=== PATIENT | female | born 1940 | race Caucasian/White ===

== ENCOUNTER 2020-01-02 07:25 | Day surgery (SDC) | payer MEDICARE ==
[2020-01-02] MEDS ORDERED: Lactated Ringers 1,000 ML IV SCH (07:30)
[2020-01-02] MEDS ORDERED: KEFZOL 1 GM/50 ML PREMIX** 1 GM/50 ML IVPB IV SCH (07:30)
[2020-01-02] MEDS ORDERED: Decadron 4 MG INJ ONE (09:01)
[2020-01-02] MEDS ORDERED: Xylocaine-Mpf 2% 5 Ml Vial ONE (09:01)
[2020-01-02] MEDS ORDERED: DIPRIVAN 200 MG/20 ML IV ONE (09:01)
[2020-01-02] MEDS ORDERED: Zofran 4 MG/2 ML VIAL ONE (09:01)
[2020-01-02] MEDS ORDERED: SUBLIMAZE 100 MCG/2 ML ONE (09:01)
[2020-01-02] MEDS ORDERED: KEFZOL 1 GM/50 ML PREMIX** 1 GM/50 ML IVPB IV ONE (10:02)
[2020-01-02] MEDS ORDERED: Lactated Ringers 1,000 ML IV ONE ×2 (10:02)
[2020-01-02 15:07] VITALS: PULSE 71; O2SAT 97
[2020-01-02 15:14] VITALS: BP 139/71
--- NOTE | 2020-01-03 09:31 | OP ---
SURGERY DATE/TIME: 01/02/2020 1311 PREOPERATIVE DIAGNOSIS: Postmenopausal bleeding and submucosal fibroid. POSTOPERATIVE DIAGNOSIS: Postmenopausal bleeding and submucosal fibroid. PROCEDURE: Hysteroscopy, D&C with resection of anterior submucosal fibroid with MyoSure. SURGEON: Gunnar Aguilar D.O. [employer] ACCESS DEVELOPER: charge preparation technician. ANESTHESIA: General. ESTIMATED BLOOD LOSS: Minimal. COMPLICATIONS: None. INDICATIONS: The risks, benefits, indications and alternatives of the procedure were reviewed with the patient prior to procedure. The patient understood the risk of infection, bleeding, bowel injury, bladder injury, ureteral injury, uterine perforation, pelvic infection, thromboembolic disorder associated with this procedure however desires to have this procedure as a possible means to alleviate her current medical condition. DESCRIPTION OF PROCEDURE AND FINDINGS: At this point the patient is taken to the operating room, given general sedation, placed in dorsal lithotomy position, prepped and draped in usual sterile fashion. A weighted speculum is then placed in the patient's vagina and the anterior lip of the cervix is grasped with a single tooth tenaculum. Endocervical dilators are advanced through the endocervical canal as a means to dilate the cervix and a 5 mm hysteroscope was then placed into the endocervical canal where visualization revealed her to have an anterior submucosal fibroid approximately 1 x 1 cm in dimension. There were no other gross abnormalities that were noted. From this point the MyoSure was then introduced into through the channel of the hysteroscope and the MyoSure was used to resect the anterior fibroid in its entirety which was approximately 1 x 1 cm in dimension. There was some old clot that was noted in the anterior surface region of the uterus where it was removed with MyoSure as well. From this point all instruments were removed from the patient's vaginal region. At this point a curette was then placed into the fundus of the uterus where curettage was performed in all quadrants of the uterus retrieving a mild to moderate amount of tissue. There was no bleeding that was noted at the completion of the procedure. From this point all instruments were removed from the patient's vaginal region. The patient was then taken out of dorsal lithotomy position and was then taken to the recovery room in stable condition. All instruments and laps were accounted for x2.
== END 2020-01-02 15:19 | disposition home or self-care (01) ==
LOC: SDC 07:25
PROVIDERS: ATTEND Obstetrics & Gynecology
DX: N95.0 Postmenopausal bleeding (principal); D25.0 Submucous leiomyoma of uterus; Z79.899 Other long term (current) drug therapy
CPT/HCPCS: 99100; J0690; J1100; J2405; J2704; J3010

== ENCOUNTER 2020-01-16 10:17 | Emergency (ER) | payer MEDICARE ==
[2020-01-16 10:56] LABS: Absolute Neutrophil Ct (ANC) 3.45 (1.4-6.9); BASOPHIL % 0.5 % (0.0-0.4); Basophil (Absolute #) 0.03 (0-0.4); Eosinophil % 3.1 % (0.00-5.0); Eosinophil (Absolute #) 0.19 (0-0.5); Hematocrit 34.6 % (35-47); Hemoglobin 11.3 gm/dl (12.0-16.0); Lymphocyte (Absolute #) 1.98 (1.0-4.6); Lymphocytes % 32.7 % (24.0-44.0); Mean Cell Volume 93.5 fl (78-100); Mean Corpuscular Hemoglobin 30.5 pg (26-32); Mean Corpuscular Hgb Concent. 32.7 g/dl (32-36); Mean Platelet Volume 8.4 fl (7.5-11.0); Monocyte (Absolute #) 0.41 (0.0-1.3); Monocytes % 6.8 % (0.0-12.0); Neutrophil % 56.9 % (36.0-66.0); Platelet Count 269 K/mm3 (150-450); Red Cell Distribution Width 12.2 % (11.5-14.0); White Blood Count 6.1 K/mm3 (4.0-10.5)
--- NOTE | 2020-01-16 10:58 | ERPHSYRPT ---
- History of Present Illness Time Seen by Provider: 01/16/20 10:30 Patient Subjective Stated Complaint: Pt had a D&C 2 weeks ago today and bled for about a day and a half, pt began bleeding again 2 days ago and reports that she is bleeding heavily now Triage Nursing Assessment: Pt brought self to the ER, pt's vitals wnl, denies pain, pulses normal, skin n/w/d, doesn't appear to be in any distress Physician History: Patient is a 79-year-old female presents to our ED with complaints of vaginal bleeding. Patient states she is postop day 14 from an D&C. Patient was d iagnosed with a bleeding uterine fibroid and reportedly had the fibroid removed 2 weeks ago. Patient has been experiencing intermittent bleeding since the surgery. However over the last 3 days the bleeding has gotten progressive. The bleeding was initially brownish but now it is bright red. No syncope. No dizziness. No chest pain or shortness of breath. No nausea vomiting or diaphoresis. Patient is currently pain-free and asymptomatic. Patient denies trauma. No fever. Patient voices no other complaints concerns at this time. Timing/Duration: other (Intermittent bleeding for 2 weeks continuous bleeding for 3 days.) Severity: moderate Modifying Factors: Improves With: nothing Associated Symptoms: denies symptoms Allergies/Adverse Reactions: Sulfa (Sulfonamide Antibiotics) Allergy (Intermediate, Verified 01/16/20 10:40) Rash meperidine [From Demerol] Adverse Reaction (Intermediate, Verified 01/16/20 10:40) Nausea Home Medications: Alprazolam 1 mg [Xanax 1 mg] 1 mg PO HS 08/29/18 [History] Cholecalciferol (Vitamin D3) [Vitamin D3] 1,000 unit PO DAILY 08/29/18 [History] Cyanocobalamin (Vitamin B-12) [Vitamin B12] 1,000 mcg PO DAILY 08/29/18 [History] Lisinopril 20 mg [Zestril 20 MG] 20 mg PO DAILY 08/29/18 [History] Multivitamin [Multivitamins] 1 each PO DAILY 08/29/18 [History] Tamoxifen Citrate 20 mg PO DAILY 08/29/18 [History] Carvedilol 3.125 mg [Coreg 3.125 MG] 3.125 mg PO BID 12/28/19 [History] Levothyroxine Sodium [Synthroid] 50 mcg PO DAILY 12/28/19 [History] [place]-3 Fatty Acids/Fish Oil [Fish Oil 1,000 mg Capsule] 1 each PO DAILY 12/28/19 [History] Aspirin EC 81 mg [Ecotrin 81 mg] 81 mg PO DAILY 01/02/20 [History] Travel Risk - International Travel Have you traveled outside of the country in past 3 weeks: No - Coronavirus Screening Are you exhibiting any of the following symptoms?: No Close contact with a COVID-19 positive Pt in past 14-21 Days: No - Review of Systems Constitutional: No Symptoms, No Fever, No Chills Eyes: No Symptoms Ears, Nose, & Throat: No Symptoms Respiratory: No Symptoms, No Cough, No Dyspnea Cardiac: No Symptoms, No Chest Pain, No Edema, No Syncope Abdominal/Gastrointestinal: No Symptoms, No Abdominal Pain, No Nausea, No Vomiting, No Diarrhea Genitourinary Symptoms: No Symptoms, No Dysuria Musculoskeletal: No Symptoms, No Back Pain, No Neck Pain Skin: No Symptoms, No Rash Neurological: No Symptoms, No Dizziness, No Focal Weakness, No Sensory Changes Psychological: No Symptoms Endocrine: No Symptoms Hematologic/Lymphatic: No Symptoms Immunological/Allergic: No Symptoms All Other Systems: Reviewed and Negative - Past Medical History Pertinent Past Medical History: Yes Neurological History: No Pertinent History ENT History: Cataracts Cardiac History: Hypertension Respiratory History: No Pertinent History, Other Endocrine Medical History: Hypothyroidism Musculoskeletal History: No Pertinent History GI Medical History: GERD History: Other Psycho-Social History: Bipolar Female Reproductive Disorders: Breast Cancer Other Medical History: Pt report she get short of breath easy. Pt reports that she has pulmonary hypertension. Hx of breast cancer right breast. 2018. chronic UTI. Pt has hx of bipolar but states " i took meds for years for my bipolar and they didn't seem to work so I stopped taking them. 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 - Social History Smoking Status: Never smoker Exposure to second hand smoke: No Drug Use: none Patient Lives Alone: Yes - Female History Hx Now: No - Nursing Vital Signs Nursing Vital Signs: Initial Vital Signs Temperature 98.1 F 01/16/20 10:24 Pulse Rate 72 01/16/20 10:24 Blood Pressure 143/65 01/16/20 10:24 O2 Sat by Pulse Oximetry 98 01/16/20 10:24 Pain Scale Pain Intensity 0 - Physical Exam General Appearance: no apparent distress, alert Eye Exam: PERRL/EOMI, eyes nml inspection Ears, Nose, Throat Exam: normal ENT inspection, TMs normal, pharynx normal, moist mucous membranes Neck Exam: normal inspection, non-tender, supple, full range of motion Respiratory Exam: normal breath sounds, lungs clear, No respiratory distress Cardiovascular Exam: regular rate/rhythm, normal heart sounds, normal peripheral pulses Gastrointestinal/Abdomen Exam: soft, normal bowel sounds, No tenderness, No mass Pelvic Exam: other (No active vaginal bleeding.) Back Exam: normal inspection, normal range of motion, No CVA tenderness, No vertebral tenderness Extremity Exam: normal inspection, normal range of motion, pelvis stable Neurologic Exam: alert, oriented x 3, cooperative, normal mood/affect, nml cerebellar function, nml station & gait, sensation nml, No motor deficits Skin Exam: normal color, warm, dry, No rash Lymphatic Exam: No adenopathy SpO2 Interpretation: normal SpO2: 98 O2 Delivery: Room Air - Course Nursing assessment & vital signs reviewed: Yes Ordered Tests: Active Orders 24 hr Category Date Time Status CBC W DIFF Stat Lab 01/16/20 10:45 Completed CMP Stat Lab 01/16/20 10:45 Completed PROTIME WITH INR Stat Lab 01/16/20 10:45 Completed PTT Stat Lab 01/16/20 10:45 Completed TROPONIN Q3H Lab 01/16/20 10:45 Completed TROPONIN Q3H Lab 01/16/20 13:45 Ordered TROPONIN Q3H Lab 01/16/20 16:45 Ordered TROPONIN Q3H Lab 01/16/20 19:45 Ordered TROPONIN Q3H Lab 01/16/20 22:45 Ordered UA W/RFX UR CULTURE Stat Lab 01/16/20 10:33 Ordered Lab/Rad Data: Laboratory Result Diagrams 01/16/20 10:45 01/16/20 10:45 Laboratory Results 01/16/20 01/16/20 01/16/20 Range/Units 10:45 10:45 10:45 WBC (4.0-10.5) K/mm3 RBC (4.1-5.4) M/mm3 Hgb (12.0-16.0) gm/dl Hct (35-47) % MCV (78-100) fl MCH (26-32) pg MCHC (32-36) g/dl RDW (11.5-14.0) % Plt Count (150-450) K/mm3 MPV (7.5-11.0) fl Gran % (36.0-66.0) % Eos # (Auto) (0-0.5) Absolute Lymphs (auto) (1.0-4.6) Absolute Monos (auto) (0.0-1.3) Lymphocytes % (24.0-44.0) % Monocytes % (0.0-12.0) % Eosinophils % (0.00-5.0) % Basophils % (0.0-0.4) % Absolute Granulocytes (1.4-6.9) Basophils # (0-0.4) PT 11.6 (9.95-12.35) SECONDS INR 1.03 (0.8-3.0) APTT 27.7 (25.3-37.0) SECONDS Sodium 131 L (137-145) mmol/L Potassium 4.9 (3.5-5.1) mmol/L Chloride 101 (98-107) mmol/L Carbon Dioxide 23 (22-30) mmol/L Anion Gap 11.4 (5-15) MEQ/L BUN 18 H (7-17) mg/dL Creatinine 0.94 (0.52-1.04) mg/dL Estimated GFR > 60.0 ML/MIN Glucose 100 (74-106) mg/dL Calcium 9.3 (8.4-10.2) mg/dL Total Bilirubin 0.40 (0.2-1.3) mg/dL AST 29 (14-36) U/L ALT 17 (0-35) U/L Alkaline Phosphatase 45 (38-126) U/L Troponin I < 0.012 (0.000-0.034) ng/mL Serum Total Protein 6.7 (6.3-8.2) g/dL Albumin 4.1 (3.5-5.0) g/dL 01/16/20 Range/Units 10:45 WBC 6.1 (4.0-10.5) K/mm3 RBC 3.70 L (4.1-5.4) M/mm3 Hgb 11.3 L (12.0-16.0) gm/dl Hct 34.6 L (35-47) % MCV 93.5 (78-100) fl MCH 30.5 (26-32) pg MCHC 32.7 (32-36) g/dl RDW 12.2 (11.5-14.0) % Plt Count 269 (150-450) K/mm3 MPV 8.4 (7.5-11.0) fl Gran % 56.9 (36.0-66.0) % Eos # (Auto) 0.19 (0-0.5) Absolute Lymphs (auto) 1.98 (1.0-4.6) Absolute Monos (auto) 0.41 (0.0-1.3) Lymphocytes % 32.7 (24.0-44.0) % Monocytes % 6.8 (0.0-12.0) % Eosinophils % 3.1 (0.00-5.0) % Basophils % 0.5 (0.0-0.4) % Absolute Granulocytes 3.45 (1.4-6.9) Basophils # 0.03 (0-0.4) PT (9.95-12.35) SECONDS INR (0.8-3.0) APTT (25.3-37.0) SECONDS Sodium (137-145) mmol/L Potassium (3.5-5.1) mmol/L Chloride (98-107) mmol/L Carbon Dioxide (22-30) mmol/L Anion Gap (5-15) MEQ/L BUN (7-17) mg/dL Creatinine (0.52-1.04) mg/dL Estimated GFR ML/MIN Glucose (74-106) mg/dL Calcium (8.4-10.2) mg/dL Total Bilirubin (0.2-1.3) mg/dL AST (14-36) U/L ALT (0-35) U/L Alkaline Phosphatase (38-126) U/L Troponin I (0.000-0.034) ng/mL Serum Total Protein (6.3-8.2) g/dL Albumin (3.5-5.0) g/dL - Progress Progress: improved Progress Note: 01/16/20 12:20 Patient reassessed. She feels well. No pain. No active vaginal bleeding. Work-up is essentially nonremarkable at this time. No significant change in her hemoglobin in light of her bleeding. Case discussed with our patients [employer] physician who advised discharging and he will see her in his office. Plan of care discussed with patient. We called the office and arrange a follow- up appointment for tomorrow at 10:[address] Jacinto Will see patient in: office (We arranged to have a follow-up appointment tomorrow 10:[address] Hudson's office.) Counseled pt/family regarding: lab results, diagnosis, need for follow-up, rad results - Departure Departure Disposition: Home Clinical Impression: Vaginal bleeding Condition: Stable Critical Care Time: No Referrals: JAMES SUAREZ [Primary Care Provider] - Additional Instructions: Discharge/Care Plan KIM CARTER was seen on 01/16/20 in the Emergency Room. The patient was counseled regarding Diagnosis,Lab results, Imaging studies, need for follow up and when to return to the Emergency Room. Prescriptions given: Discharge Note I have spoken with the patient and/or caregivers. I have explained the patient's condition, diagnosis and treatment plan based on the information available to me at this time. I have answered the patient's and/or caregiver's questions and addressed any concerns. The patient and/or caregivers have as good understanding of the patient's diagnosis, condition and treatment plan as can be expected at this point. The vital signs have been stable. The patient's condition is stable and appropriate for discharge from the emergency department. The patient will pursue further outpatient evaluation with the primary care physician or other designated or consulting physician as outlined in the discharge instructions. The patient and/or caregivers are agreeable to this plan of care and follow-up instructions have been explained in detail. The patient and/or caregivers have received these instruction. The patient/and or caregivers are aware that any significant change in condition or worsening of symptoms should prompt an immediate return to this or the closest emergency department or call 911.
[2020-01-16 11:03] LABS: INR 1.03 (0.8-3.0); PROTIME 11.6 SECONDS (9.95-12.35)
[2020-01-16 11:06] LABS: ALBUMIN 4.1 g/dL (3.5-5.0); ALKALINE PHOSPHATASE 45 U/L (38-126); ANION GAP 11.4 MEQ/L (5-15); BLOOD UREA NITROGEN 18 mg/dL (7-17); CHLORIDE 101 mmol/L (98-107); Calcium 9.3 mg/dL (8.4-10.2); Carbon Dioxide 23 mmol/L (22-30); Creatinine 1 0.94 mg/dL (0.52-1.04); EST GLOMERULAR FILTRATION RATE > 60.0 ML/MIN; Glucose 100 mg/dL (74-106); PTT 27.7 SECONDS (25.3-37.0); Potassium 4.9 mmol/L (3.5-5.1); SGOT/AST 29 U/L (14-36); SGPT/ALT 17 U/L (0-35); SODIUM 131 mmol/L (137-145); Total Protein 6.7 g/dL (6.3-8.2)
[2020-01-16 12:04] VITALS: BP 127/62; PULSE 66
[2020-01-16 12:23] VITALS: O2SAT 98
== END 2020-01-16 12:27 | disposition home or self-care (01) ==
LOC: ED 10:17
DX: N93.9 Abnormal uterine and vaginal bleeding, unspecified (principal); Z79.899 Other long term (current) drug therapy; I10 Essential (primary) hypertension; E78.5 Hyperlipidemia, unspecified
CPT/HCPCS: 36415; 80053; 84484; 85025; 85610; 85730; 99283

== ENCOUNTER 2020-01-26 09:24 | Emergency (ER) | payer MEDICARE ==
[2020-01-26] MEDS ORDERED: BACIGUENT PACKET TP ONE (09:32)
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
[2020-01-26] MEDS ORDERED: BACIGUENT PACKET ONE (09:42)
[2020-01-26 09:54] VITALS: BP 100/59; PULSE 79; O2SAT 99
== END 2020-01-26 09:53 | disposition home or self-care (01) ==
LOC: ED 09:24
DX: T22.212A Burn of second degree of left forearm, initial encounter (principal); X08.8XXA Exposure to other specified smoke, fire and flames, initial encounter; Z79.899 Other long term (current) drug therapy; I10 Essential (primary) hypertension; E03.9 Hypothyroidism, unspecified
CPT/HCPCS: 36415; 84443; 99283; A9270-GY

== ENCOUNTER 2021-09-09 10:30 | Day surgery (SDC) | payer MEDICARE ==
[~2021-09-09 10:30] MED LIST: XYLOCAINE 1% HCL 20 ML MDV ONE
[2021-09-09] MEDS ORDERED: Marcaine Mpf 0.5% Vial 30 Ml IJ ONE (10:31)
[2021-09-09] MEDS ORDERED: CEFAZOLIN 2 GM-D5W BAG** 2 GM/50 ML ML IV SCH (11:30)
[2021-09-09] MEDS ORDERED: Lactated Ringers 1,000 ML IV SCH (11:30)
[2021-09-09] MEDS ORDERED: Xylocaine-Mpf 2% 5 Ml Vial ONE (12:35)
[2021-09-09] MEDS ORDERED: DIPRIVAN 200 MG/20 ML IV ONE (12:35)
[2021-09-09] MEDS ORDERED: Versed 2 MG/2 ML Injection ONE (12:35)
[2021-09-09] MEDS ORDERED: SUBLIMAZE 100 MCG/2 ML ONE (12:35)
[2021-09-09] MEDS ORDERED: OFIRMEV 100 ML IV ONE (12:39)
[2021-09-09 14:31] VITALS: O2SAT 98
[2021-09-09 14:34] VITALS: BP 151/51; PULSE 60
--- NOTE | 2021-09-10 09:36 | OP ---
SURGERY DATE/TIME: 09/09/2021 1236 PREOPERATIVE DIAGNOSES: 1) Peripheral vascular disease. 2) Pain right foot. 3) Pain left foot. 4) Hammer toe. 5) Ulceration to proximal interphalangeal joint. POSTOPERATIVE DIAGNOSES: 1) Peripheral vascular disease. 2) Pain right foot. 3) Pain left foot. 4) Hammer toe. 5) Ulceration to proximal interphalangeal joint. PROCEDURES: 1) Amputation of third digit left foot. 2) Amputation second digit right foot. SURGEON: Dell Tolliver DPM. COMPUTER NETWORK SUPPORT SPECIALIST: None. ANESTHESIA: MAC plus local. HEMOSTASIS: Pressure dressing. ESTIMATED BLOOD LOSS: Less than 5 cc. INJECTABLES: 30 cc of 1:1 mixture of 1% lidocaine plain and 0.5% bupivacaine plain each injected to the second and third digits of the right and left foot respectively 15 cc each in a digit block-type fashion. INDICATION FOR SURGERY: Kathleen is a very pleasant 81-year-old female who presented to my office for significant amount of pain secondary to hammer toes. The patient did have bunion procedures and hammer toes corrected approximately 15 years ago. However, she indicates when they performed the procedure they did not use any hardware and the bone thickening occurred. Today, she presents with significant amount of pain primarily secondary to slight contractures of the digits. This pain causes her significant amount of disability. The patient is elderly and would like to continue moving. However, this pain has slowed her down and caused her significant amount of pain. Initially the patient was coming in for a reconstructive surgery. However given her pain is localized to her second and third digits to the right and left lower extremity respectively, options were discussed and the patient wanted the quickest return to activity that was possible. Given her age and medical status, the patient opted to proceed with an amputation which if healed within the next several weeks she can be back to her normal athletic activity and with little to lose in that situation. The patient understands all risks, complications and benefits of surgical intervention at this time including but not limited to delayed wound healing, nonwound healing, possibility of infection, hematoma, seroma, possibility of need for surgical intervention at a later date in order to address any issues. No guarantees were provided as to the outcome. However, performing this procedure is in hopes to get her back to ambulatory status immediately following the procedure and back in the gym in a relatively quick manner of time. It is with that we decided to proceed. DESCRIPTION OF PROCEDURE AND FINDINGS: The patient is brought into the OR and placed on the OR table in the supine position. At this time, bilateral lower extremities were prepped and draped in the typical sterile fashion and lowered onto the surgical field. There was MAC sedation provided prior to prepping and draping. A 15 cc block was injected into the left third digit and the right second digit. The procedure was carried out the same for the bilateral lower extremity. A dorsal racket-type incision was made down to the level of bone to the second digit and the third digit respectively. A disarticulation took place of the second metaphalangeal joint and the third metaphalangeal joint where disarticulation took place and the toe was handed off the field. Copious amounts of sterile were utilized with bulb and syringe in order to flush the surgical site. 4-0 Monocryl was utilized to coapt the surgical site and 3-0 Nylon was used utilized in a simple interrupted-type fashion in order to coapt the skin edges. At this time a dressing consisting of Betadine, Adaptic, 4x4, Kerlix and IVAN were applied to the bilateral lower extremity. The patient was then reversed from anesthesia and returned to the postoperative anesthesia care unit with vital signs stable and vascular status intact. The patient handled the anesthesia as well as the procedure without significant complication. Postoperative orders as indicated in the patient's discharge chart.
== END 2021-09-09 14:23 | disposition home or self-care (01) ==
LOC: SDC 10:30
PROVIDERS: ATTEND Podiatrist Foot & Ankle Surgery
DX: I73.9 Peripheral vascular disease, unspecified (principal); M20.42 Other hammer toe(s) (acquired), left foot; M20.41 Other hammer toe(s) (acquired), right foot; L97.509 Non-pressure chronic ulcer of other part of unspecified foot with unspecified severity; M79.672 Pain in left foot; M79.671 Pain in right foot
CPT/HCPCS: 28820; 99100; J0690; J2250; J2704; J3010

== ENCOUNTER 2021-12-26 12:02 | Emergency (ER) | payer MEDICARE ==
--- NOTE | 2021-12-26 12:24 | XRAY ---
Indication confusion. Stroke. Multiple contiguous images obtained through the head without contrast. Comparison: None Age-appropriate global atrophy, moderate periventricular degenerative micro-ischemia bilaterally, and remote lacunar infarct right external capsule. No acute intracranial hemorrhage, abnormal extra-axial fluid collection, or mass effect. Fourth ventricle is midline without hydrocephalus. Bony calvarium intact. Complete opacification left sphenoid sinus. Remaining visualized paranasal sinuses and mastoid air cells are clear. Impression: Nonacute senile brain with remote lacunar infarct right external capsule and left sphenoid sinus disease.
[2021-12-26 12:50] LABS: Basophil (Absolute #) 0.04 x10^3/uL (0-0.4); Eosinophil % 2.7 % (0.00-5.0); Hematocrit 36.9 % (35-47); Hemoglobin 12.1 g/dL (12.0-16.0); Lymphocyte (Absolute #) 2.62 x10^3/uL (1.0-4.6); Mean Cell Volume 89.8 fL (78-100); Mean Corpuscular Hemoglobin 29.4 pg (26-32); Mean Corpuscular Hgb Concent. 32.8 g/dL (32-36); Mean Platelet Volume 8.7 fL (7.5-11.0); Monocyte (Absolute #) 0.52 x10^3/uL (0.0-1.3); Monocytes % 6.9 % (0.0-12.0); Neutrophil % 54.8 % (36.0-66.0); Platelet Count 225 x10^3/uL (150-450); Red Blood Count 4.11 x10^6/uL (4.1-5.4); White Blood Count 7.5 x10^3/uL (4.0-10.5)
[2021-12-26 13:04] LABS: INR 0.99 (0.8-3.0); PROTIME 10.5 SECONDS (9.4-12.5); PTT 23.6 SECONDS (25.1-36.5)
--- NOTE | 2021-12-26 13:04 | XRAY ---
Indication: Stroke symptoms. History of whooping cough and pulmonary hypertension. Comparison: November 23, 2019 Portable chest remains hyperinflated and clear with a few incidental calcified granulomas. Bony thorax intact again with mild osteopenia, degenerative changes, and right axillary ross dissection. Impression: Continued nonacute chest with chronic features.
[2021-12-26 13:11] LABS: ALBUMIN 4.4 g/dL (3.5-5.0); ALKALINE PHOSPHATASE 60 U/L (38-126); BLOOD UREA NITROGEN 20 mg/dL (7-17); CHLORIDE 97 mmol/L (98-107); Calcium 9.8 mg/dL (8.4-10.2); Carbon Dioxide 27 mmol/L (22-30); Creatinine 1 0.89 mg/dL (0.52-1.04); EST GLOMERULAR FILTRATION RATE > 60.0 ML/MIN; Glucose 97 mg/dL (74-106); Potassium 5.1 mmol/L (3.5-5.1); SGOT/AST 42 U/L (14-36); SGPT/ALT 23 U/L (0-35); SODIUM 128 mmol/L (137-145); Total Protein 7.1 g/dL (6.3-8.2)
[2021-12-26 15:20] VITALS: O2SAT 97
[2021-12-26 15:22] VITALS: BP 132/72; PULSE 73
--- NOTE | 2021-12-26 15:23 | ERPHSYRPT ---
- History of Present Illness Time Seen by Provider: 12/26/21 12:09 Source: patient Exam Limitations: no limitations Patient Subjective Stated Complaint: pt to ER sent from [facility] for possible cva. pt stated she had sudden hearing loss 3 days ago and now has slight facial droop and Right eye neglect. Triage Nursing Assessment: pt a&oX4. pt with slight facial droop and Right eye neglect. pt with unsteady gait. pt skin pwd. Physician History: 81 years old female with history of hypertension, hypothyroidism presented in the ER from urgent care with possible strokelike symptoms. Patient reports she went to urgent care because she had a decreased hearing left ear 3 days ago and gradually improved. She also was noted to have some right facial drooping at urgent care which I could not appreciate during my interview. Patient denies any other focal numbness tingling or weakness. Patient does have issue with her hearing at her baseline and exactly could not pinpoint when current symptoms started and improved. It was also told that she has some issue with vision but patient denies having issue with vision. No difficulty speech. Denies any headache. Not a good historian and history is limited. Patient states "I do not think I have stroke and do not know why they sent me in here, I want to go home as quickly as possible". Allergies/Adverse Reactions: Sulfa (Sulfonamide Antibiotics) Allergy (Intermediate, Verified 12/26/21 12:25) Rash meperidine [From Demerol] Adverse Reaction (Intermediate, Verified 12/26/21 12:25) Nausea Home Medications: ALPRAZolam 1 MG [Xanax 1 mg] 1 mg PO TID 08/29/18 [History] Cholecalciferol (Vitamin D3) [Vitamin D3] 1,000 unit PO DAILY 08/29/18 [History] Cyanocobalamin (Vitamin B-12) [Vitamin B12] 1,000 mcg PO DAILY 08/29/18 [History] Lisinopril 20 mg [Zestril 20 MG] 10 mg PO DAILY 08/29/18 [History] Multivitamin [Multivitamins] 1 each PO DAILY 08/29/18 [History] Tamoxifen Citrate 20 mg PO DAILY 08/29/18 [History] [place]-3 Fatty Acids/Fish Oil [Fish Oil 1,000 mg Capsule] 1 each PO DAILY [History] Aspirin EC 81 mg [Ecotrin 81 mg] 81 mg PO DAILY 01/02/20 [History] Cider Vinegar [Apple Cider Vinegar] 1 cap PO DAILY 09/01/21 [History] L.acidoph,Paracasei, B.lactis [Probiotic] 1 cap PO DAILY 09/01/21 [History] Levothyroxine Sodium [Euthyrox] 50 mcg PO DAILY 09/01/21 [History] Hx Influenza Vaccination/Date Given: Yes Hx Pneumococcal Vaccination/Date Given: No Travel Risk - International Travel Have you traveled outside of the country in past 3 weeks: No - Coronavirus Screening Are you exhibiting any of the following symptoms?: No Close contact with a COVID-19 positive Pt in past 14-21 Days: No - Vaccine Status Have you recieved a Covid-19 vaccination: Yes Machine Tech: Moderna - Vaccination Dates Date of 2cond Vaccination (if applicable): unk - Review of Systems Constitutional: No Symptoms Eyes: No Symptoms Ears, Nose, & Throat: Hearing Changes Respiratory: No Symptoms Cardiac: No Symptoms Abdominal/Gastrointestinal: No Symptoms Genitourinary Symptoms: No Symptoms Musculoskeletal: Arthralgias Skin: No Symptoms Neurological: Sensory Changes Psychological: No Symptoms Hematologic/Lymphatic: No Symptoms Immunological/Allergic: No Symptoms - Past Medical History Pertinent Past Medical History: Yes Neurological History: TIA ENT History: Cataracts Cardiac History: Hypertension, Other Respiratory History: No Pertinent History, Other Endocrine Medical History: Hypothyroidism Musculoskeletal History: No Pertinent History GI Medical History: GERD History: Other Psycho-Social History: Anxiety, Bipolar, Depression Female Reproductive Disorders: Breast Cancer Other Medical History: Pt report she get short of breath easy. Pt reports that she has pulmonary hypertension. Hx of breast cancer right breast. 2018. chronic UTI. Pt has hx of bipolar but states " i took meds for years for my bipolar and they didn't seem to work so I stopped taking them. 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 - Social History Smoking Status: Never smoker Exposure to second hand smoke: No Drug Use: none Patient Lives Alone: Yes - Nursing Vital Signs Nursing Vital Signs: Initial Vital Signs Temperature 98.2 F 12/26/21 12:16 Pulse Rate 77 12/26/21 12:16 Respiratory Rate 26 H 12/26/21 12:16 Blood Pressure 157/83 12/26/21 12:16 O2 Sat by Pulse Oximetry 96 12/26/21 12:16 Pain Scale Pain Intensity 0 - [place] Coma Scale Best Eye Response ([place]): (4) open spontaneously Best Verbal Response ([place]): (5) oriented Best Motor Response ([place]): (6) obeys commands [place] Total: 15 - Physical Exam General Appearance: no apparent distress, alert Eye Exam: bilateral eye: normal inspection, PERRL, EOMI Ears, Nose, Throat Exam: normal ENT inspection, TMs normal, pharynx normal, moist mucous membranes Neck Exam: normal inspection, non-tender, supple, full range of motion Respiratory: normal breath sounds, lungs clear Cardiovascular: regular rate/rhythm, normal heart sounds Gastrointestinal: soft, normal bowel sounds, No tenderness Back Exam: normal inspection, normal range of motion Extremity Exam: normal inspection, pelvis stable Mental Status: alert, oriented x 3, cooperative, 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 Exam: normal speech, PERRL, No normal hearing (Mild decreased hearing left) Coordination/Gait: normal finger to nose, normal cerebellar function, negative Romberg's sign Motor/Sensory: no motor deficit, no sensory deficit, no pronator drift, negative Babinski's sign DTR: bicep (R): 2+, bicep (L): 2+, knee (R): 2+, knee (L): 2+ Skin Exam: normal color SpO2 Interpretation: normal SpO2: 97 O2 Delivery: Room Air - Course EKG Interpreted by Me: RATE (74), Sinus Rhythm, NORMAL AXIS, NORMAL INTERVALS, Q-wave Ordered Tests: Active Orders 24 hr Category Date Time Status EKG-ER Only STAT Care 12/26/21 12:35 Completed NPO (ED) STAT Care 12/26/21 12:35 Completed POCT Glucose Check STAT Care 12/26/21 12:35 Completed CHEST 1 VIEW (PORTABLE) Stat Exams 12/26/21 12:53 Completed HEAD WITHOUT CONTRAST [CT] Stat Exams 12/26/21 12:04 Completed CBC W DIFF Stat Lab 12/26/21 12:45 Completed CMP Stat Lab 12/26/21 12:45 Completed POCT GLUCOSE Stat Lab 12/26/21 12:40 Completed PROTIME WITH INR Stat Lab 12/26/21 12:45 Completed PTT Stat Lab 12/26/21 12:45 Completed Lab/Rad Data: Laboratory Result Diagrams 12/26/21 12:45 12/26/21 12:45 Laboratory Results 12/26/21 12/26/21 12/26/21 Range/Units 12:45 12:45 12:45 WBC 7.5 (4.0-10.5) x10^3/uL RBC 4.11 (4.1-5.4) x10^6/uL Hgb 12.1 (12.0-16.0) g/dL Hct 36.9 (35-47) % MCV 89.8 (78-100) fL MCH 29.4 (26-32) pg MCHC 32.8 (32-36) g/dL RDW 12.0 (11.5-14.0) % Plt Count 225 (150-450) x10^3/uL MPV 8.7 (7.5-11.0) fL Gran % 54.8 (36.0-66.0) % Immature Gran % (Auto) 0.1 (0.00-0.4) % Nucleat RBC Rel Count 0.0 (0.00-0.1) % Eos # (Auto) 0.20 (0-0.5) x10^3/uL Immature Gran # (Auto) 0.01 (0.00-0.03) x10^3u/L Absolute Lymphs (auto) 2.62 (1.0-4.6) x10^3/uL Absolute Monos (auto) 0.52 (0.0-1.3) x10^3/uL Absolute Nucleated RBC 0.00 (0.00-0.01) x10^3u/L Lymphocytes % 35.0 (24.0-44.0) % Monocytes % 6.9 (0.0-12.0) % Eosinophils % 2.7 (0.00-5.0) % Basophils % 0.5 (0.0-0.4) % Absolute Granulocytes 4.10 (1.4-6.9) x10^3/uL Basophils # 0.04 (0-0.4) x10^3/uL PT 10.5 (9.4-12.5) SECONDS INR 0.99 (0.8-3.0) APTT 23.6 L (25.1-36.5) SECONDS Sodium 128 L (137-145) mmol/L Potassium 5.1 (3.5-5.1) mmol/L Chloride 97 L (98-107) mmol/L Carbon Dioxide 27 (22-30) mmol/L Anion Gap 9.0 (5-15) MEQ/L BUN 20 H (7-17) mg/dL Creatinine 0.89 (0.52-1.04) mg/dL Estimated GFR > 60.0 ML/MIN Glucose 97 (74-106) mg/dL POC Glucometer (74 to 106) mg/dL Calcium 9.8 (8.4-10.2) mg/dL Total Bilirubin 0.40 (0.2-1.3) mg/dL AST 42 H (14-36) U/L ALT 23 (0-35) U/L Alkaline Phosphatase 60 (38-126) U/L Serum Total Protein 7.1 (6.3-8.2) g/dL Albumin 4.4 (3.5-5.0) g/dL 12/26/ Range/Units 12:40 WBC (4.0-10.5) x10^3/uL RBC (4.1-5.4) x10^6/uL Hgb (12.0-16.0) g/dL Hct (35-47) % MCV (78-100) fL MCH (26-32) pg MCHC (32-36) g/dL RDW (11.5-14.0) % Plt Count (150-450) x10^3/uL MPV (7.5-11.0) fL Gran % (36.0-66.0) % Immature Gran % (Auto) (0.00-0.4) % Nucleat RBC Rel Count (0.00-0.1) % Eos # (Auto) (0-0.5) x10^3/uL Immature Gran # (Auto) (0.00-0.03) x10^3u/L Absolute Lymphs (auto) (1.0-4.6) x10^3/uL Absolute Monos (auto) (0.0-1.3) x10^3/uL Absolute Nucleated RBC (0.00-0.01) x10^3u/L Lymphocytes % (24.0-44.0) % Monocytes % (0.0-12.0) % Eosinophils % (0.00-5.0) % Basophils % (0.0-0.4) % Absolute Granulocytes (1.4-6.9) x10^3/uL Basophils # (0-0.4) x10^3/uL PT (9.4-12.5) SECONDS INR (0.8-3.0) APTT (25.1-36.5) SECONDS Sodium (137-145) mmol/L Potassium (3.5-5.1) mmol/L Chloride (98-107) mmol/L Carbon Dioxide (22-30) mmol/L Anion Gap (5-15) MEQ/L BUN (7-17) mg/dL Creatinine (0.52-1.04) mg/dL Estimated GFR ML/MIN Glucose (74-106) mg/dL POC Glucometer 88 (74 to 106) mg/dL Calcium (8.4-10.2) mg/dL Total Bilirubin (0.2-1.3) mg/dL AST (14-36) U/L ALT (0-35) U/L Alkaline Phosphatase (38-126) U/L Serum Total Protein (6.3-8.2) g/dL Albumin (3.5-5.0) g/dL - Progress Progress: unchanged Progress Note: 12/26/21 15:40 Patient is made stroke activated, prompt CT head is obtained which is negative. Patient is not in the window for tPA or any kind of intervention as her symptoms started almost 3 days ago per her. Baseline lab work grossly unremarkable except for some low sodium 128. SOC neurology consult is obtained and recommended TIA work-up. Plan discussed with patient who does not want to stay in the hospital at all. She wants to leave AGAINST MEDICAL ADVICE. She is not confused or altered at all. Patient states "I do not think I have stroke and need any other work-up. I have to feed my meal at home." She left the ER in a stable condition. Discussed with : Other Counseled pt/family regarding: lab results, diagnosis, need for follow-up, rad results - Departure Departure Disposition: AMA Clinical Impression: Decreased hearing of left ear Condition: Stable Critical Care Time: No Referrals: JAMES SUAREZ NP [Primary Care Provider] - Follow up/PCP as directed
== END 2021-12-26 15:22 | disposition left against medical advice (07) ==
LOC: ED 12:02
DX: H91.92 Unspecified hearing loss, left ear (principal); I10 Essential (primary) hypertension; Z79.899 Other long term (current) drug therapy
CPT/HCPCS: 36415; 70450; 71045; 80053; 82947; 85025; 85610; 85730; 93005; 99284

== ENCOUNTER 2023-06-21 10:32 | Inpatient (IN) | payer MEDICARE ==
--- NOTE | 2023-06-21 09:08 | HP ---
DATE OF SURGERY: 06/21/2023 HISTORY OF PRESENT ILLNESS: The patient is an 82-year-old female with history of irritable bowel syndrome, history of colitis. Off and on trouble with three to six stools a day. She had a flare up in the past. Last colonoscopy a few years ago with no bloody stools. Blood spot when she wipes. PAST MEDICAL HISTORY: Gastroesophageal reflux disease. Irritable bowel syndrome. 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 Problem with sleep apnea. Arthritis. Transient ischemic attack in the past. Hypothyroidism. Anxiety. Breast cancer diagnosed in the past. PAST SURGICAL HISTORY: Cataracts. Tonsillectomy and adenoidectomy. Throat surgery in the past. EGD and colonoscopy in the past. Left ear surgery. Second to left foot amputation. MEDICATIONS: Donepezil, multivitamin, fish oil, vitamin D3, cyanocobalamin, aspirin, Lisinopril, prednisone. ALLERGIES: SULFA. DEMEROL. FAMILY HISTORY: Negative in regards to this problem. SOCIAL HISTORY: No smoking or alcohol abuse. REVIEW OF SYSTEMS: Twelve systems reviewed. No chest pain or palpitations. Other systems negative or noncontributory as above and per preadmission questionnaire. PHYSICAL EXAMINATION: Height 5 feet 4 inches. BMI 21.46. GENERAL: No acute distress. HEENT: Sclerae nonicteric. EOMI. Oral mucous membranes moist. NECK: No JVD. CHEST: Equal excursion, nonlabored breathing. CVS: Regular rate and rhythm. ABDOMEN: Soft. No peritoneal signs. EXTREMITIES: No cyanosis or edema. NEURO: Alert, oriented, moving extremities symmetrically. RECTAL: Deferred timed to endoscopy exam. PSYCH: Appropriate mood and affect. SKIN: Dry. IMPRESSION: Change in bowel habits, intermittent hemorrhoid prolapse despite conservative management. I feel the patient will benefit from colonoscopy possible internal hemorrhoid banding. Risks explained in detail including bleeding and infection. Risk of bowel injury or perforation. Risk of missed or nondiagnosis or incomplete exam. General risk of anesthesia, risk of bowel prep, risk of sedation, risk of progression of hemorrhoid disease possibly requiring other procedures or referrals. Risk of aches and pains. Risk of sphincter spasm or irritability but not limited to. She understands and agrees to the planned procedure. Will proceed with colonoscopy with possible internal hemorrhoid banding pending operative findings.
[2023-06-21] MEDS ORDERED: Lactated Ringers 1,000 ML IV ONE ×3 (10:39→16:46)
[2023-06-21] MEDS: Lactated Ringers 1,000 ML IV SCH (11:20)
[2023-06-21 11:33] LABS: ANION GAP 11.7 MEQ/L (5-15); Calcium 9.8 mg/dL (8.4-10.2); Creatinine 1 0.83 mg/dL (0.52-1.04); EST GLOMERULAR FILTRATION RATE 71.2 ML/MIN; Potassium 4.1 mmol/L (3.5-5.1)
[2023-06-21] MEDS ORDERED: DIPRIVAN 200 MG/20 ML IV ONE (12:14)
[2023-06-21] MEDS ORDERED: Quelicin Fliptop 200 MG/10 ML ONE (12:32)
[2023-06-21] MEDS ORDERED: Amidate 20 MG/10 ML IV ONE (12:32)
[2023-06-21] MEDS ORDERED: SUBLIMAZE 100 MCG/2 ML ONE ×3 (12:32→16:39)
[2023-06-21] MEDS ORDERED: ROCURONIUM BROMIDE IV ONE ×2 (12:35→14:25)
[2023-06-21] MEDS ORDERED: Sensorcaine 0.25% 10 ML ONE (13:09)
[2023-06-21] MEDS ORDERED: MEFOXIN 2 GM PREMIX** 2 GM/50 ML ML IV ONE (13:29)
[2023-06-21] MEDS ORDERED: OFIRMEV 100 ML IV ONE (13:30)
[2023-06-21] MEDS ORDERED: Marcaine 0.5%/Epinephrine 10 ML ONE ×2 (13:52→13:56)
[2023-06-21] MEDS ORDERED: BRIDION 200MG/2ML IV ONE (15:17)
[2023-06-21] MEDS ORDERED: Zofran 4 MG/2 ML VIAL ONE ×2 (15:19→15:49)
[2023-06-21] MEDS ORDERED: Decadron 4 MG INJ ONE (15:19)
[2023-06-21] MEDS ORDERED: Compazine 10 MG/2 ML ONE (15:50)
[2023-06-21 17:03] LABS: Appearance Clear (Clear); Bacteria None Seen /HPF (None Seen); Bilirubin Negative (Negative); Blood Negative (Negative); Epithelial Cells None Seen /HPF (None Seen); Glucose, Urine Negative (Negative); Hyaline Casts NONE SEEN /LPF (0-2); Ketones Negative (Negative); Leukocyte Esterase Negative (Negative); Nitrite Negative (Negative); Ph 6.5 (4.6-8.0); Protein,Urine Dip Negative (Negative); RBC 0-2 /HPF (0-5); Urobilinogen 0.2 mg/dL (0.2); WBC 0-2 /HPF (0-5)
[2023-06-21] MEDS ORDERED: MORPHINE SULFATE 4 MG INJ IV PRN (17:57)
[2023-06-21] MEDS: D5W/0.45NS W/ 20mEq KCl 1000 ML 1,000 ML IV SCH (18:46)
[2023-06-21] MEDS: NORCO 5/325 MG PO PRN (18:49)
[2023-06-21 19:04] LABS: Absolute Neutrophil Ct (ANC) 10.29 x10^3/uL (1.4-6.9); BASOPHIL % 0.2 % (0.0-0.4); Basophil (Absolute #) 0.02 x10^3/uL (0-0.4); Eosinophil (Absolute #) 0 x10^3/uL (0-0.5); Hematocrit 39.3 % (35-47); Hemoglobin 13.2 g/dL (12.0-16.0); IMMATURE GRAN # 0.04 x10^3u/L (0.00-0.03); IMMATURE GRAN % 0.3 % (0.00-0.4); Lymphocyte (Absolute #) 0.52 x10^3/uL (1.0-4.6); Lymphocytes % 4.5 % (24.0-44.0); Mean Cell Volume 87.5 fL (78-100); Mean Corpuscular Hemoglobin 29.4 pg (26-32); Mean Corpuscular Hgb Concent. 33.6 g/dL (32-36); Mean Platelet Volume 8.8 fL (7.5-11.0); Monocyte (Absolute #) 0.62 x10^3/uL (0.0-1.3); Monocytes % 5.4 % (0.0-12.0); Neutrophil % 89.6 % (36.0-66.0); Platelet Count 209 x10^3/uL (150-450); Red Blood Count 4.49 x10^6/uL (4.1-5.4); White Blood Count 11.5 x10^3/uL (4.0-10.5)
[2023-06-21 19:31] LABS: PREALBUMIN 23.08 mg/dL (17.6-36.0); TROPONIN < 0.012 ng/mL (0.000-0.033)
[2023-06-21 20:31] LABS: Slide Review 1 YES
[2023-06-21] MEDS: Zofran 4 MG/2 ML VIAL IV PRN (21:09)
[2023-06-21] MEDS: MORPHINE SULFATE 2 MG INJ IV PRN (21:09)
[2023-06-21] MEDS: XANAX 1 MG PO ONE (22:03)
[2023-06-21] MEDS ORDERED: PIPERACILLIN/TAZOBACTAM IV ONE (23:57)
[2023-06-21] MEDS ORDERED: Sodium Chloride 100ML MINI-BAG PLUS 100 ML IV ONE (23:58)
[2023-06-21] MEDS: PIPERACILLIN/TAZOBACTAM 3.375 GM in Sodium Chloride 100ML MINI-BAG PLUS 100 ML IV SCH (23:59)
[2023-06-22 05:16] LABS: Absolute Neutrophil Ct (ANC) 11.26 x10^3/uL (1.4-6.9); BASOPHIL % 0.1 % (0.0-0.4); Basophil (Absolute #) 0.01 x10^3/uL (0-0.4); Eosinophil (Absolute #) 0 x10^3/uL (0-0.5); Hematocrit 33.8 % (35-47); Hemoglobin 11.6 g/dL (12.0-16.0); IMMATURE GRAN # 0.04 x10^3u/L (0.00-0.03); IMMATURE GRAN % 0.3 % (0.00-0.4); Lymphocyte (Absolute #) 0.92 x10^3/uL (1.0-4.6); Lymphocytes % 7.1 % (24.0-44.0); Mean Cell Volume 87.8 fL (78-100); Mean Corpuscular Hemoglobin 30.1 pg (26-32); Mean Corpuscular Hgb Concent. 34.3 g/dL (32-36); Mean Platelet Volume 9.2 fL (7.5-11.0); Monocyte (Absolute #) 0.68 x10^3/uL (0.0-1.3); Monocytes % 5.3 % (0.0-12.0); Neutrophil % 87.2 % (36.0-66.0); Platelet Count 204 x10^3/uL (150-450); Red Blood Count 3.85 x10^6/uL (4.1-5.4); Red Cell Distribution Width 12.6 % (11.5-14.0); White Blood Count 12.9 x10^3/uL (4.0-10.5)
[2023-06-22 05:44] LABS: ANION GAP 11.4 MEQ/L (5-15); Calcium 8.8 mg/dL (8.4-10.2); Creatinine 1 0.84 mg/dL (0.52-1.04); EST GLOMERULAR FILTRATION RATE 70.2 ML/MIN; Potassium 4.6 mmol/L (3.5-5.1)
[2023-06-22] MEDS ORDERED: Sodium Chloride 100ML MINI-BAG PLUS 100 ML IV ONE ×2 (05:54→05:56)
[2023-06-22] MEDS ORDERED: PIPERACILLIN/TAZOBACTAM IV ONE (05:54)
[2023-06-22] MEDS: XANAX 1 MG PO SCH (09:24)
[2023-06-22] MEDS: SYNTHROID 50 MCG PO SCH (09:26)
[2023-06-22] MEDS: THERAGRAN MULTIVITAMIN PO SCH (09:26)
[2023-06-22] MEDS: FISH OIL 1,000 MG CAPSULE PO SCH (09:26)
[2023-06-22] MEDS: VITAMIN D PO SCH (09:26)
[2023-06-22] MEDS: Zestril 10 MG PO SCH (09:26)
[2023-06-22] MEDS: Acidophilus TABLET PO SCH (09:26)
[2023-06-22] MEDS: Vitamin B-12 500 MCG PO SCH (09:27)
--- NOTE | 2023-06-22 09:38 | OP ---
SURGERY DATE/TIME: 06/21/2023 1215 PREOPERATIVE DIAGNOSIS: History of change in bowel habits and prolapsing internal hemorrhoids. POSTOPERATIVE DIAGNOSIS: History of change in bowel habits and prolapsing internal hemorrhoids. PROCEDURES: 1) Colonoscopy to descending colon. 2) Cold biopsy to evaluate for microscopic colitis. 3) This procedure aborted secondary to perforated diverticulum. 4) Exploratory mini-laparotomy with resection of sigmoid colon with perforated diverticulum segment with primary end-to-end anastomosis descending colon to rectum with EEA25 stapler. 5) Colonoscopy to transverse colon (demonstrating viable airtight tension free anastomosis). SURGEON: Dr. Joel Smyth. ANESTHESIA: General. QUANTITATIVE BLOOD LOSS: Less than 75 cc. INDICATIONS: As noted above. Risks and benefits explained in detail and not limited to and consent obtained. DESCRIPTION OF PROCEDURE AND FINDINGS: The patient was initially started with endoscopy, consent obtained. Time out had been done. MAC anesthesia introduced. On digital rectal exam revealed some small internal and external hemorrhoids. Video colonoscope inserted and passed up through the tortuous sigmoid colon. The patient had some medium to large diverticula whether this large diverticula perforated again with minimal pushing of the scope was being done at the time. There is an obvious perforation. It was felt that this patient should definitely warrant laparotomy with resection of this segment as this is a perforated diverticulum. On the way out, a couple cold biopsies were taken to evaluate for microscopic colitis. At this point the room was being readied for laparotomy and plan to do a mini-laparotomy with resection of the sigmoid at the perforated take and re-anastomosis possible laparoscopy. The patient's propofol had worn off. This was discussed with the patient and she was agreeable. General risk of bleeding, infection, bowel injury, risk of leak or bleeding or fistula formation. Small risk of bladder, ureter, vascular issues or injury but not limited to. Risk of obstruction. Risk of nonhealing of the wound but not limited to. She was agreeable. I also spoke with the son over the phone as he was not in the building. I updated him that she had perforation most likely came from diverticula. It was much safer to go ahead and resect this now than risk nonhealing prolonged sort or sepsis. They were agreeable to surgery. Consent was obtained. The patient is taken to the operating room. She was then placed under general anesthetic, prepped and draped in usual sterile fashion in lithotomy position. A small lower midline incision was made. Sides of the wound protector we did not have a wound protector here at this facility at this point at this site. Dissection carried down to very redundant sigmoid colon had diverticula. There were some adhesions down behind the liver and these were released. At this point, appeared to be coming from diverticula but to make 100% sure the bowel was stretched out. Staff member just gently inserted the colonoscope into the rectum and insufflated this site where what appeared to be perforated diverticulum was marked with a suture. At this point, it was felt that it should be taken down to the top edge of the rectum. There seemed to be a couple of small diverticula down over level of pelvic brim. It was felt should go past this. The patients descending colon more proximally transected with NETO stapler. As this is not a cancer operation stayed close to the mesentery carefully avoiding the visible left ureter with some vessels taken down with a combination of clamps and Vicryl ties to this mini-laparotomy incision. The colon is resected right over the top part of the rectum and part just passed what appeared to be some small diverticula. At this point, we did not have a blue load contour stapler so the little bit of ooze at the staple line controlled with interrupted 3-0 PDS suture ligature. Good hemostasis noted. At this point, carefully inspected. The right colon was unremarkable. Palpated and visualized the colon, redundant transverse colon but there was no minerva thickening or palpable masses. At this point, the wound was tacked as a wound protector was still not available. We went to another hospital for one. Tacked the wound with some dry pads in part of the distal and proximal end of the colon was open. The sides were checked and it was felt that she had a narrow caliber colon. It was felt a size 25 most appropriate site to use. Therefore the anvil was then placed in this proximal limb and the stump was then restapled and the anvil brought through another staple line and secured with PDS suture. At this point, down below easily visualized the staple line where the colon had been transected. The 25 stapler was then carefully passed up through the bowel at this point and carefully opened when the pin came through this broke through the staple line. The stapler was then connected insuring the proximal end was avoiding any twisting. It easily snapped together. Once it was snapped together, the stapler was then carefully tightened to the lower third of the green zone. We waited a couple of minutes and the stapler was fired. The stapler was then backed off two to two and a half turns and the stapler easily removed. At this point, the proximal colon was pinched off to the part of the transverse colon with a colonoscope carefully passed up to the anastomosis. There was fluid instilled in the pelvis. It was airtight, viable anastomosis. It appeared to be quite viable. There are no signs of any air leak. The scope up to the transverse colon no signs of any large polyps or masses. The remainder of the colon was then palpated. It was felt putting pressure on this anastomosis passing the scope further around was not indicated at this point. The scope is carefully withdrawn. Again, random biopsies of the colon had been accomplished to evaluate for microscopic colitis. It was felt that the hemorrhoids did not appear to be large enough to warrant any banding at this time. The scope is withdrawn. Regowned and gloved. Went back up top. Copious amount of irrigation irrigating clear. Good hemostasis noted. All counts were correct x2 per the staff. EARLINE drain placed down the pelvis out through lateral stab wound and secured with PDS suture and placed to bulb suction. Copious amount of irrigation irrigating the abdomen irrigating clear. Clean gloves were used. Fascia is closed with running looped PDS. Subcu irrigated out. Some 3-0 Vicryl placed superficial subcu. Skin was stapled. Some Iodoform packing placed down between to be gradually advanced out over the next few days. The patient tolerated the procedure well. There were no immediate complications. The family is not here. I will try to reach the son over the phone. She will be admitted for pain control, will consult the Hospitalist for medical management. Advance her diet when she starts passing gas.
[2023-06-22] MEDS ORDERED: NON-FORMULARY ITEM (Cholecalciferol (Vitamin D3) [Vitamin D3] 1,000 UNIT Capsule) PO SCH (10:00)
[2023-06-22] MEDS ORDERED: NON-FORMULARY ITEM (Multivitamin [Multivitamins] 1 EACH Capsule) PO SCH (10:00)
[2023-06-22] MEDS ORDERED: NON-FORMULARY ITEM (L.Acidoph,Paracasei, B.Lactis [Probiotic] 1 EACH Capsule) PO SCH (10:00)
[2023-06-22] MEDS ORDERED: Zestril 20 MG PO SCH (10:00)
[2023-06-22] MEDS ORDERED: NON-FORMULARY ITEM (Cyanocobalamin (Vitamin B-12) [Vitamin B12] 2,500 MCG Tab.Chew) PO SCH (10:00)
[2023-06-22] MEDS ORDERED: NON-FORMULARY ITEM (Omega-3 Fatty Acids/Fish Oil [Fish Oil 1,000 Mg Capsule] 1 EACH Capsul PO SCH (10:00)
[2023-06-22] MEDS: ENOXAPARIN SODIUM SQ SCH (11:36)
--- NOTE | 2023-06-22 15:11 | PCM.NOTE ---
Date and Time: 06/22/23 6062 Subjective Assessment: Ms. Mendez is an 82 year old female with a pmhx of GERD, IBS, HTN, HÉCTOR, TIA, h/o breast cancer, and hypothyroidism who is s/p exploratory mini-laparotomy with resection of sigmoid colon with perforated diverticulum segment with primary end-to-end anastomosis descending colon to rectum . Surgery has requested hospitalist team consult for medical management. Patient is POD#1 with minimal abdominal pain when she coughs but otherwise no complaints on exam. MLI is CDI with Iodoform packing which will be advanced out over the next few days. EARLINE drain noted to the left abdomen. Denies fever,cough, sob, cp, GOMEZ, dizziness, N/V/D. - Review of Systems Constitutional: No Symptoms Eyes: No Symptoms Ears, Nose, & Throat: No Symptoms Respiratory: No Symptoms Cardiac: No Symptoms Abdominal/Gastrointestinal: No Symptoms Genitourinary Symptoms: No Symptoms, Other (FC) Musculoskeletal: No Symptoms Skin: Other (MLI CDI with EARLINE drain to left abdomen) Neurological: No Symptoms Psychological: No Symptoms Endocrine: No Symptoms Hematologic/Lymphatic: No Symptoms Immunological/Allergic: No Symptoms Objective Exam General Appearance: no apparent distress Neurologic Exam: alert, oriented x 3, cooperative Skin Exam: normal color Wound Assessment: Skin/Wound Assessment Wound/Incision Assessment Start: 06/21/23 18:45 Text: Status: Active Freq: Q6H Protocol: Document 06/22/23 14:00 [facility] (Rec: 06/22/23 14:25 [facility] [id number]) Wound/Incision Assessment Medial Abdomen Wound Assessment Shift Assessment Wound Type Incision Wound Stage Non Pressure Wound Dressing Status Drainage circled Drainage Amount Minimal Drainage Odor None/Absent General Appearance Well Approximated,Concetta Intact Packing Type Gauze Packing Strips Primary Dressing Absorbant Pad Secondary Dressing large tegaderm over abd pad Medial Abdomen Drain Type EARLINE drain Drainage Description Sanguineous Odor None/Absent Comment Left abdomen EARLINE drain, Sutures intact, Dressing C/D/I. Wound Photo Photo Taken No Eye Exam: PERRL Ears, Nose, Throat Exam: normal ENT inspection Neck Exam: normal inspection Respiratory Exam: crackles/rales Cardiovascular Exam: regular rate/rhythm, normal heart sounds Gastrointestinal/Abdomen Exam: soft, normal bowel sounds, other (MLI with concetta, veena -EARLINE drain to left abdomen) Extremity Exam: normal inspection Back Exam: normal inspection Pelvic Exam: deferred Rectal Exam: deferred Objective Data Vital Signs: Vital Signs - 24 hr Temp Pulse Resp BP BP Pulse Ox 06/22/23 14:03 98.0 F 77 18 143/53 100 06/22/23 13:58 81 29 H 86/59 97 06/22/23 12:00 86 24 111/48 95 06/22/23 10:00 78 26 H 129/54 98 06/22/23 09:24 77 28 H 157/62 97 06/22/23 08:00 82 43 H 131/52 97 06/22/23 06:51 97.8 F 82 28 H 127/57 96 06/22/23 06:00 75 19 131/55 95 06/22/23 05:43 98.2 F 06/22/23 04:00 77 24 122/52 95 06/22/23 02:00 77 27 H 133/53 94 L 06/22/23 00:01 70 06/22/23 00:00 69 21 123/50 96 06/21/23 22:00 98.3 F 74 16 131/60 94 L 06/21/23 20:00 74 24 133/56 97 06/21/23 17:29 96.9 F 73 19 169/93 96 Pain Assessment - Last Documented Pain Intensity 1 Pain Scale Used 0-10 Pain Scale Intake and Output: Intake & Output 06/20/23 06/21/23 06/22/23 06/23/23 11:59 11:59 11:59 11:59 Intake Total 1623 2817 Output Total 780 362 Balance 843 4015 Weight 56 kg 55.7 kg Lab Results: Lab Results-Last 24 Hours 06/21/23 06/21/23 06/21/23 Range/Units 13:25 19:00 19:00 WBC 11.5 H (4.0-10.5) x10^3/uL RBC 4.49 (4.1-5.4) x10^6/uL Hgb 13.2 (12.0-16.0) g/dL Hct 39.3 (35-47) % MCV 87.5 (78-100) fL MCH 29.4 (26-32) pg MCHC 33.6 (32-36) g/dL RDW 12.0 (11.5-14.0) % Plt Count 209 (150-450) x10^3/uL MPV 8.8 (7.5-11.0) fL Gran % 89.6 H (36.0-66.0) % Immature Gran % (Auto) 0.3 (0.00-0.4) % Nucleat RBC Rel Count 0.0 (0.00-0.1) % Eos # (Auto) 0 (0-0.5) x10^3/uL Immature Gran # (Auto) 0.04 H (0.00-0.03) x10^3u/L Absolute Lymphs (auto) 0.52 L (1.0-4.6) x10^3/uL Absolute Monos (auto) 0.62 (0.0-1.3) x10^3/uL Absolute Nucleated RBC 0.00 (0.00-0.01) x10^3u/L Lymphocytes % 4.5 L (24.0-44.0) % Monocytes % 5.4 (0.0-12.0) % Eosinophils % 0.0 (0.00-5.0) % Basophils % 0.2 (0.0-0.4) % Absolute Granulocytes 10.29 H (1.4-6.9) x10^3/uL Basophils # 0.02 (0-0.4) x10^3/uL Sodium (135-145) mmol/L Potassium (3.5-5.1) mmol/L Chloride (98-107) mmol/L Carbon Dioxide (22-30) mmol/L Anion Gap (5-15) MEQ/L BUN (7-17) mg/dL Creatinine (0.52-1.04) mg/dL Estimated GFR ML/MIN Glucose (74-106) mg/dL Calcium (8.4-10.2) mg/dL Troponin I < 0.012 (0.000-0.033) ng/mL Prealbumin 23.08 (17.6-36.0) mg/dL Urine Color Yellow (Yellow) Urine Appearance Clear (Clear) Urine pH 6.5 (4.6-8.0) Ur Specific [place] 1.010 (1.005-1.030) Urine Protein Negative (Negative) Urine Glucose (UA) Negative (Negative) mg/dL Urine Ketones Negative (Negative) Urine Blood Negative (Negative) Urine Nitrite Negative (Negative) Urine Bilirubin Negative (Negative) Urine Urobilinogen 0.2 (0.2) mg/dL Ur Leukocyte Esterase Negative (Negative) U Hyaline Cast (Auto) NONE SEEN (0-2) /LPF Urine Microscopic RBC 0-2 (0-5) /HPF Urine Microscopic WBC 0-2 (0-5) /HPF Ur Epithelial Cells None Seen (None Seen) /HPF Urine Bacteria None Seen (None Seen) /HPF Slides for Path Review YES 06/22/23 06/22/23 Range/Units 04:24 04:24 WBC 12.9 H (4.0-10.5) x10^3/uL RBC 3.85 L (4.1-5.4) x10^6/uL Hgb 11.6 L (12.0-16.0) g/dL Hct 33.8 L (35-47) % MCV 87.8 (78-100) fL MCH 30.1 (26-32) pg MCHC 34.3 (32-36) g/dL RDW 12.6 (11.5-14.0) % Plt Count 204 (150-450) x10^3/uL MPV 9.2 (7.5-11.0) fL Gran % 87.2 H (36.0-66.0) % Immature Gran % (Auto) 0.3 (0.00-0.4) % Nucleat RBC Rel Count 0.0 (0.00-0.1) % Eos # (Auto) 0 (0-0.5) x10^3/uL Immature Gran # (Auto) 0.04 H (0.00-0.03) x10^3u/L Absolute Lymphs (auto) 0.92 L (1.0-4.6) x10^3/uL Absolute Monos (auto) 0.68 (0.0-1.3) x10^3/uL Absolute Nucleated RBC 0.00 (0.00-0.01) x10^3u/L Lymphocytes % 7.1 L (24.0-44.0) % Monocytes % 5.3 (0.0-12.0) % Eosinophils % 0.0 (0.00-5.0) % Basophils % 0.1 (0.0-0.4) % Absolute Granulocytes 11.26 H (1.4-6.9) x10^3/uL Basophils # 0.01 (0-0.4) x10^3/uL Sodium 128 L (135-145) mmol/L Potassium 4.6 (3.5-5.1) mmol/L Chloride 98 (98-107) mmol/L Carbon Dioxide 22 (22-30) mmol/L Anion Gap 11.4 (5-15) MEQ/L BUN 10 (7-17) mg/dL Creatinine 0.84 (0.52-1.04) mg/dL Estimated GFR 70.2 ML/MIN Glucose 182 H (74-106) mg/dL Calcium 8.8 (8.4-10.2) mg/dL Troponin I (0.000-0.033) ng/mL Prealbumin (17.6-36.0) mg/dL Urine Color (Yellow) Urine Appearance (Clear) Urine pH (4.6-8.0) Ur Specific [place] (1.005-1.030) Urine Protein (Negative) Urine Glucose (UA) (Negative) mg/dL Urine Ketones (Negative) Urine Blood (Negative) Urine Nitrite (Negative) Urine Bilirubin (Negative) Urine Urobilinogen (0.2) mg/dL Ur Leukocyte Esterase (Negative) U Hyaline Cast (Auto) (0-2) /LPF Urine Microscopic RBC (0-5) /HPF Urine Microscopic WBC (0-5) /HPF Ur Epithelial Cells (None Seen) /HPF Urine Bacteria (None Seen) /HPF Slides for Path Review Multi-Disciplinary Progress Notes: Multi-Disciplinary Progress Notes 06/22/23 10:20 Physical Therapy Note by Shon (L [id number])Nupur PT COMPLETED SCREEN THIS DATE FOR S/P COLECTOMY. PATIENT WAS INDEPENDENT PRIOR TO ADMISSION. DISCUSSED WITH NURSING AND CASE MANAGEMENT REGARDING PATIENT STATUS. NURSING REPORTS THEY ARE GETTING PATIENT UP TO THE CHAIR AND WALKED HER THIS AM IN THE [place]WAY. NURSING STATES THEY WILL REQUEST PT ORDER AT FUTURE DATE IF NEEDED PENDING PATIENT PROGRESS SHE IS MOBILIZING WITH STAFF. Initialized on 06/22/23 10:20 - END OF NOTE Assessment/Plan (1) Perforated diverticulum Current Visit: Yes Status: Acute Assessment & Plan: -Surgery following, patient is s/p exploratory mini-laparotomy with resection of sigmoid colon with perforated diverticulum segment with primary end-to-end anastomosis descending colon to rectum Code(s): K57.80 - DVTRCLI OF INTEST, PART UNSP, W PERF AND ABSCESS W/O BLEED (2) Status post colon resection Current Visit: Yes Status: Acute Assessment & Plan: -Surgery following, note reviewed, agree with plan - admission for pain control -Advance diet per surgery when patient passes gas/sips and chips for now -Zosyn -Patient to hold ASA/Fish oil for a total of 7 days -Lovenox prophylactic -lactobacillus acidophilus Code(s): Z90.49 - ACQUIRED ABSENCE OF OTHER SPECIFIED PARTS OF DIGESTIVE TRACT (3) HTN (hypertension) Current Visit: Yes Status: Acute Assessment & Plan: -Monitor closely with pain medications -continue lisinopril Code(s): I10 - ESSENTIAL (PRIMARY) HYPERTENSION (4) Hypothyroid Current Visit: Yes Status: Acute Assessment & Plan: -continue synthyroid Code(s): E03.9 - HYPOTHYROIDISM, UNSPECIFIED (5) Anxiety Current Visit: Yes Status: Acute Assessment & Plan: -alprazolam prn Code(s): F41.9 - ANXIETY DISORDER, UNSPECIFIED (6) Hyponatremia Current Visit: Yes Status: Acute Assessment & Plan: -secondary to GI loss -continue IVF -continue to monitor Code(s): E87.1 - HYPO-OSMOLALITY AND HYPONATREMIA
[2023-06-23 07:57] LABS: Absolute Neutrophil Ct (ANC) 7.01 x10^3/uL (1.4-6.9); BASOPHIL % 0.3 % (0.0-0.4); Basophil (Absolute #) 0.03 x10^3/uL (0-0.4); Eosinophil % 0.7 % (0.00-5.0); Eosinophil (Absolute #) 0.06 x10^3/uL (0-0.5); Hematocrit 32.3 % (35-47); IMMATURE GRAN # 0.05 x10^3u/L (0.00-0.03); IMMATURE GRAN % 0.6 % (0.00-0.4); Lymphocyte (Absolute #) 1.11 x10^3/uL (1.0-4.6); Lymphocytes % 12.8 % (24.0-44.0); Mean Cell Volume 88.5 fL (78-100); Mean Corpuscular Hemoglobin 30.1 pg (26-32); Mean Corpuscular Hgb Concent. 34.1 g/dL (32-36); Monocyte (Absolute #) 0.43 x10^3/uL (0.0-1.3); Monocytes % 4.9 % (0.0-12.0); Neutrophil % 80.7 % (36.0-66.0); Platelet Count 182 x10^3/uL (150-450); Red Blood Count 3.65 x10^6/uL (4.1-5.4); Red Cell Distribution Width 12.3 % (11.5-14.0); White Blood Count 8.7 x10^3/uL (4.0-10.5)
[2023-06-23 08:05] LABS: ALBUMIN 3.3 g/dL (3.5-5.0); BILIRUBIN,TOTAL 0.8 mg/dL (0.2-1.3); Calcium 8.7 mg/dL (8.4-10.2); Creatinine 1 0.9 mg/dL (0.52-1.04); EST GLOMERULAR FILTRATION RATE 64.6 ML/MIN; Potassium 4.5 mmol/L (3.5-5.1)
[2023-06-23] MEDS: Compazine 10 MG/2 ML IV PRN (08:29)
[2023-06-23] MEDS: Mylicon 80MG PO PRN (08:29)
[2023-06-23] MEDS: Dextrose 5%-NS IV Solution 1000 ML 1,000 ML IV SCH (10:21)
[2023-06-23] MEDS: XANAX 1 MG PO PRN (12:34)
--- NOTE | 2023-06-23 12:53 | PCM.NOTE ---
Date and Time: 06/23/23 3664 Subjective Assessment: Ms. Mendez is an 82 year old female with a pmhx of GERD, IBS, HTN, HÉCTOR, TIA, h/o breast cancer, and hypothyroidism who is s/p exploratory mini-laparotomy with resection of sigmoid colon with perforated diverticulum segment with primary end-to-end anastomosis descending colon to rectum . Surgery has requested hospitalist team consult for medical management. Patient is POD#2 with minimal abdominal pain but states she is feeling very weak today and unable to ambulate much. MLI is CDI with Iodoform packing which will be advanced out over the next few days. EARLINE drain noted to the left abdomen. Denies fever,cough, sob, cp, GOMEZ, dizziness, N/V/D. - Review of Systems Constitutional: No Symptoms Eyes: No Symptoms Ears, Nose, & Throat: No Symptoms Respiratory: No Symptoms Cardiac: No Symptoms Abdominal/Gastrointestinal: Abdominal Pain Genitourinary Symptoms: No Symptoms Musculoskeletal: No Symptoms Skin: No Symptoms Neurological: No Symptoms Psychological: Anxiety Endocrine: No Symptoms Hematologic/Lymphatic: No Symptoms Immunological/Allergic: No Symptoms Objective Exam General Appearance: no apparent distress Neurologic Exam: alert, oriented x 3, cooperative Skin Exam: normal color Wound Assessment: Skin/Wound Assessment Wound/Incision Assessment Start: 06/21/23 18:45 Text: Status: Active Freq: Q6H Protocol: Document 06/23/23 08:00 [facility] (Rec: 06/23/23 08:45 [facility] [id number]) Wound/Incision Assessment Medial Abdomen Wound Assessment Shift Assessment Wound Type Incision Wound Stage Non Pressure Wound Dressing Status Drainage circled Drainage Amount Minimal Drainage Odor None/Absent Packing Type Gauze Packing Strips Primary Dressing Absorbant Pad Secondary Dressing large tegaderm over abd pad Comment Dressing intact. Drainage circled on previous shift. No new drainage/ shadowing noted. Medial Abdomen Drain Type EARLINE drain Drainage Description Sanguineous Odor None/Absent Comment Left abdomen EARLINE drain, Sutures intact, Dressing C/D/I. Remains true. Wound Photo Photo Taken No Eye Exam: PERRL Ears, Nose, Throat Exam: normal ENT inspection Neck Exam: full range of motion Respiratory Exam: crackles/rales Cardiovascular Exam: regular rate/rhythm, normal heart sounds Gastrointestinal/Abdomen Exam: soft, other (hypoactive BS x 4 quads see wound assessment for MLI comments) Extremity Exam: normal inspection Back Exam: normal inspection Pelvic Exam: deferred Rectal Exam: deferred Objective Data Vital Signs: Vital Signs - 24 hr Temp Pulse Resp BP BP Pulse Ox 06/23/23 11:03 90 30 H 152/66 95 06/23/23 10:00 98.0 F 90 26 H 135/60 96 06/23/23 08:16 94 H 25 H 158/64 95 06/23/23 08:00 23 06/23/23 07:09 97.7 F 86 25 H 145/54 96 06/23/23 06:31 85 27 H 145/54 95 06/23/23 06:08 85 34 H 158/56 96 06/23/23 04:18 84 06/23/23 04:17 25 H 06/23/23 04:00 85 33 H 133/58 96 06/23/23 03:32 98.2 F 80 20 123/49 96 06/23/23 02:42 80 21 155/66 96 06/23/23 02:00 81 21 143/51 96 06/23/23 01:23 83 23 134/54 96 06/23/23 00:01 88 06/23/23 00:00 97.9 F 77 19 130/50 96 06/22/23 23:34 97.9 F 81 17 133/55 93 L 06/22/23 22:00 85 25 H 125/48 94 L 06/22/23 21:20 82 18 140/52 98 06/22/23 21:09 88 25 H 114/62 96 06/22/23 20:55 79 06/22/23 20:51 24 06/22/23 20:00 98.3 F 80 28 H 125/55 96 06/22/23 19:30 96 06/22/23 18:01 98.2 F 87 27 H 130/55 96 06/22/23 17:42 86 31 H 110/61 96 06/22/23 16:05 99 06/22/23 16:00 87 33 H 123/49 96 06/22/23 15:52 26 H 06/22/23 14:52 81 24 108/42 99 06/22/23 14:03 98.0 F 77 18 143/53 100 06/22/23 13:58 81 29 H 86/59 97 Pain Assessment - Last Documented Pain Intensity 5 Pain Scale Used 0-10 Pain Scale Intake and Output: Intake & Output 06/21/23 06/22/23 06/23/23 06/24/23 11:59 11:59 11:59 11:59 Intake Total 1623 4551 Output Total 780 862 600 Balance 845 9116 -600 Weight 56 kg 55.7 kg Lab Results: Lab Results-Last 24 Hours 06/23/23 06/23/23 Range/Units 07:30 07:35 WBC 8.7 (4.0-10.5) x10^3/uL RBC 3.65 L (4.1-5.4) x10^6/uL Hgb 11.0 L (12.0-16.0) g/dL Hct 32.3 L (35-47) % MCV 88.5 (78-100) fL MCH 30.1 (26-32) pg MCHC 34.1 (32-36) g/dL RDW 12.3 (11.5-14.0) % Plt Count 182 (150-450) x10^3/uL MPV 9.0 (7.5-11.0) fL Gran % 80.7 H (36.0-66.0) % Immature Gran % (Auto) 0.6 H (0.00-0.4) % Nucleat RBC Rel Count 0.0 (0.00-0.1) % Eos # (Auto) 0.06 (0-0.5) x10^3/uL Immature Gran # (Auto) 0.05 H (0.00-0.03) x10^3u/L Absolute Lymphs (auto) 1.11 (1.0-4.6) x10^3/uL Absolute Monos (auto) 0.43 (0.0-1.3) x10^3/uL Absolute Nucleated RBC 0.00 (0.00-0.01) x10^3u/L Lymphocytes % 12.8 L (24.0-44.0) % Monocytes % 4.9 (0.0-12.0) % Eosinophils % 0.7 (0.00-5.0) % Basophils % 0.3 (0.0-0.4) % Absolute Granulocytes 7.01 H (1.4-6.9) x10^3/uL Basophils # 0.03 (0-0.4) x10^3/uL Sodium 128 L (135-145) mmol/L Potassium 4.5 (3.5-5.1) mmol/L Chloride 98 (98-107) mmol/L Carbon Dioxide 25 (22-30) mmol/L Anion Gap 9.0 (5-15) MEQ/L BUN 6 L (7-17) mg/dL Creatinine 0.90 (0.52-1.04) mg/dL Estimated GFR 64.6 ML/MIN Glucose 133 H (74-106) mg/dL Calcium 8.7 (8.4-10.2) mg/dL Total Bilirubin 0.80 (0.2-1.3) mg/dL AST 46 H (14-36) U/L ALT 22 (0-35) U/L Alkaline Phosphatase 67 (38-126) U/L Serum Total Protein 6.0 L (6.3-8.2) g/dL Albumin 3.3 L (3.5-5.0) g/dL Multi-Disciplinary Progress Notes: Multi-Disciplinary Progress Notes 06/23/23 11:36 Physical Therapy Note by Penny(L#[id number])Monika ATTEMPTED P.T. EVAL THIS A.M. AND PT. HAD JUST WALKED W/ NSG STAFF AND WANTED TO LIE DOWN D/T INCREASED ABD PN AND GAS. WILL ATTEMPT ASSESSMENT LATER. Initialized on 06/23/23 11:36 - END OF NOTE 06/23/23 06:37 Respiratory Note by Jessica Sauer PT CONTINUES TO DO IS SELF CARE Initialized on 06/23/23 06:37 - END OF NOTE Assessment/Plan (1) Perforated diverticulum Current Visit: Yes Status: Acute Assessment & Plan: -Surgery following, patient is s/p exploratory mini-laparotomy with resection of sigmoid colon with perforated diverticulum segment with primary end-to-end anastomosis descending colon to rectum Code(s): K57.80 - DVTRCLI OF INTEST, PART UNSP, W PERF AND ABSCESS W/O BLEED (2) Status post colon resection Current Visit: Yes Status: Acute Assessment & Plan: -Surgery following, note reviewed, agree with plan - admission for pain control -Advance diet per surgery when patient passes gas/sips and chips for now -Zosyn -Patient to hold ASA/Fish oil for a total of 7 days -Lovenox prophylactic -lactobacillus acidophilus 06/22: -No flatus -Continue pain control -encouraged ambulation Code(s): Z90.49 - ACQUIRED ABSENCE OF OTHER SPECIFIED PARTS OF DIGESTIVE TRACT (3) HTN (hypertension) Current Visit: Yes Status: Acute Assessment & Plan: -Monitor closely with pain medications -continue lisinopril Code(s): I10 - ESSENTIAL (PRIMARY) HYPERTENSION (4) Hypothyroid Current Visit: Yes Status: Acute Assessment & Plan: -continue synthyroid Code(s): E03.9 - HYPOTHYROIDISM, UNSPECIFIED (5) Anxiety Current Visit: Yes Status: Acute Assessment & Plan: -alprazolam prn Code(s): F41.9 - ANXIETY DISORDER, UNSPECIFIED (6) Hyponatremia Current Visit: Yes Status: Acute Assessment & Plan: -secondary to GI loss -continue IVF -continue to monitor 06/22: -Fluids changed to D5 with NS, will repeat sodium levels Code(s): E87.1 - HYPO-OSMOLALITY AND HYPONATREMIA Code(s): K57.80 - DVTRCLI OF INTEST, PART UNSP, W PERF AND ABSCESS W/O BLEED (2) Status post colon resection Current Visit: Yes Status: Acute Code(s): Z90.49 - ACQUIRED ABSENCE OF OTHER SPECIFIED PARTS OF DIGESTIVE TRACT (3) HTN (hypertension) Current Visit: Yes Status: Acute Code(s): I10 - ESSENTIAL (PRIMARY) HYPERTENSION (4) Hypothyroid Current Visit: Yes Status: Acute Code(s): E03.9 - HYPOTHYROIDISM, UNSPECIFIED (5) Anxiety Current Visit: Yes Status: Acute Code(s): F41.9 - ANXIETY DISORDER, UNSPECIFIED (6) Hyponatremia Current Visit: Yes Status: Acute Code(s): E87.1 - HYPO-OSMOLALITY AND HYPONATREMIA
[2023-06-24 05:21] LABS: Hematocrit 27.1 % (35-47); Hemoglobin 9.1 g/dL (12.0-16.0); Mean Corpuscular Hemoglobin 29.5 pg (26-32); Mean Corpuscular Hgb Concent. 33.6 g/dL (32-36); Mean Platelet Volume 8.6 fL (7.5-11.0); Platelet Count 157 x10^3/uL (150-450); Red Blood Count 3.08 x10^6/uL (4.1-5.4); Red Cell Distribution Width 12.4 % (11.5-14.0); White Blood Count 6.2 x10^3/uL (4.0-10.5)
[2023-06-24] MEDS: Sodium Chloride 0.9% 1000 ML 1,000 ML IV SCH (08:04)
[2023-06-24 08:07] LABS: ALBUMIN 2.7 g/dL (3.5-5.0); ANION GAP 6.4 MEQ/L (5-15); BILIRUBIN,TOTAL 0.4 mg/dL (0.2-1.3); Calcium 8.4 mg/dL (8.4-10.2); Creatinine 1 0.8 mg/dL (0.52-1.04); EST GLOMERULAR FILTRATION RATE 74.4 ML/MIN; Potassium 3.5 mmol/L (3.5-5.1); Total Protein 5.2 g/dL (6.3-8.2)
--- NOTE | 2023-06-24 11:07 | PCM.NOTE ---
Date and Time: 06/24/23 1059 Subjective Assessment: Ms. Mendez is an 82 year old female with a pmhx of GERD, IBS, HTN, HÉCTOR, TIA, h/o breast cancer, and hypothyroidism who is s/p exploratory mini-laparotomy with resection of sigmoid colon with perforated diverticulum segment with primary end-to-end anastomosis descending colon to rectum . Surgery has requested hospitalist team consult for medical management. Patient is POD#3 with minimal abdominal pain. She is now advanced to [facility] with + flatus and tolerating well. States she feels her energy is improving, no longer feeling as weak as she did yesterday. MLI is CDI with Iodoform packing which will be advanced out over the next few days. EARLINE drain noted to the left abdomen with scant serosanguineous drainage. Denies fever,cough, sob, cp, GOMEZ, dizziness, N/V/D. - Review of Systems Constitutional: No Symptoms Eyes: No Symptoms Ears, Nose, & Throat: No Symptoms Respiratory: Short Of Breath Cardiac: No Symptoms Abdominal/Gastrointestinal: Abdominal Pain, Other (MLI with tesha/veena/ EARLINE drain Left abdomen/ CDI) Genitourinary Symptoms: No Symptoms Musculoskeletal: No Symptoms Skin: No Symptoms Neurological: No Symptoms Psychological: No Symptoms Endocrine: No Symptoms Hematologic/Lymphatic: No Symptoms Immunological/Allergic: No Symptoms Objective Exam General Appearance: no apparent distress Neurologic Exam: alert, oriented x 3, cooperative Skin Exam: other (MLI with tesha/veena/ EARLINE drain Left abdomen/ CDI) Wound Assessment: Skin/Wound Assessment Wound/Incision Assessment Start: 06/21/23 18:45 Text: Status: Active Freq: Q6H Protocol: Document 06/24/23 08:00 [facility] (Rec: 06/24/23 09:13 [facility] [id number]) Wound/Incision Assessment Medial Abdomen Wound Assessment Shift Assessment Wound Type Incision Wound Stage Non Pressure Wound Dressing Status Dry & Intact Drainage Amount None Drainage Odor None/Absent General Appearance Well Approximated,[place] Intact Packing Type Gauze Packing Strips Secondary Dressing large tegaderm over abd pad Comment POD #3 incision well approximated, no redness noted , wick was advanced 1 cm on previous shift, new dressing placed with 3x8 non-adherent Telfa pad & covered with tegaderm on previous shift. No shadowing noted. Dressing remains C/D/I. Medial Abdomen Drain Type EARLINE drain Odor None/Absent Comment Left abdomen EARLINE drain, sutures intact, no redness noted. Dressing changed with 4x4 drain sponge, 3x4 non-adherent Telfa pad, & covered with tegaderm on previous shift. Dressing remains C/D/I. Wound Photo Photo Taken No Eye Exam: PERRL Ears, Nose, Throat Exam: moist mucous membranes Neck Exam: limited range of motion Respiratory Exam: crackles/rales Cardiovascular Exam: regular rate/rhythm, normal heart sounds Gastrointestinal/Abdomen Exam: soft, tenderness, other (MLI with tesha/veena/ EARLINE drain Left abdomen/ CDI) Extremity Exam: normal inspection Back Exam: normal inspection Pelvic Exam: deferred Rectal Exam: deferred Objective Data Vital Signs: Vital Signs - 24 hr Temp Pulse Resp BP BP Pulse Ox 06/24/23 08:00 97.6 F 72 25 H 143/67 96 06/24/23 04:00 97.3 F 71 18 110/56 91 L 06/24/23 03:56 73 17 118/53 92 L 06/24/23 02:00 72 17 120/54 92 L 06/24/23 00:00 77 17 107/52 92 L 06/23/23 23:26 97.8 F 79 17 112/52 90 L 06/23/23 22:00 80 16 161/76 91 L 06/23/23 20:00 90 29 H 134/89 94 L 06/23/23 18:00 98.6 F 86 22 142/81 94 L 06/23/23 16:00 97.9 F 93 H 28 H 136/60 95 06/23/23 15:51 27 H 06/23/23 14:00 90 21 135/61 95 06/23/23 13:03 87 20 141/63 92 L 06/23/23 12:00 87 21 149/57 92 L 06/23/23 11:03 90 30 H 152/66 95 Pain Assessment - Last Documented Pain Intensity 4 Pain Scale Used 0-10 Pain Scale Intake and Output: Intake & Output 06/21/23 06/22/23 06/23/23 06/24/23 11:59 11:59 11:59 11:59 Intake Total 1623 2511 Output Total 904 625 9839 Balance 840 1383 -2716 Weight 56 kg 55.7 kg 55.7 kg Lab Results: Lab Results-Last 24 Hours 06/23/23 06/24/23 06/24/23 Range/Units 14:05 05:10 05:10 WBC 6.2 (4.0-10.5) x10^3/uL RBC 3.08 L (4.1-5.4) x10^6/uL Hgb 9.1 L (12.0-16.0) g/dL Hct 27.1 L (35-47) % MCV 88.0 (78-100) fL MCH 29.5 (26-32) pg MCHC 33.6 (32-36) g/dL RDW 12.4 (11.5-14.0) % Plt Count 157 (150-450) x10^3/uL MPV 8.6 (7.5-11.0) fL Sodium 128 L 133 L (135-145) mmol/L Potassium 3.5 D (3.5-5.1) mmol/L Chloride 105 (98-107) mmol/L Carbon Dioxide 25 (22-30) mmol/L Anion Gap 6.4 (5-15) MEQ/L BUN 4 L (7-17) mg/dL Creatinine 0.80 (0.52-1.04) mg/dL Estimated GFR 74.4 ML/MIN Glucose 113 H (74-106) mg/dL Calcium 8.4 (8.4-10.2) mg/dL Total Bilirubin 0.40 (0.2-1.3) mg/dL AST 37 H (14-36) U/L ALT 18 (0-35) U/L Alkaline Phosphatase 55 (38-126) U/L Serum Total Protein 5.2 L (6.3-8.2) g/dL Albumin 2.7 L (3.5-5.0) g/dL Multi-Disciplinary Progress Notes: Multi-Disciplinary Progress Notes 06/23/23 13:28 Case Management Note by Sona Mo S/W PATIENT- SHE IS UNSURE WHAT SHE WILL NEED AT TIME OF DC. PATIENT DID AMBULATE WELL WITH PT TODAY. WILL CONTINUE TO FOLLOW WITH PATIENT AND ASSESS NEEDS AGAIN CLOSER TO TIME OF DC Initialized on 06/23/23 13:28 - END OF NOTE 06/23/23 11:36 Physical Therapy Note by Penny(Boy#[id number]),Monika ATTEMPTED P.T. EVAL THIS A.M. AND PT. HAD JUST WALKED W/ NSG STAFF AND WANTED TO LIE DOWN D/T INCREASED ABD PN AND GAS. WILL ATTEMPT ASSESSMENT LATER. Initialized on 06/23/23 11:36 - END OF NOTE Assessment/Plan (1) Perforated diverticulum Current Visit: Yes Status: Acute Assessment & Plan: -Surgery following, patient is s/p exploratory mini-laparotomy with resection of sigmoid colon with perforated diverticulum segment with primary end-to-end anastomosis descending colon to rectum Code(s): K57.80 - DVTRCLI OF INTEST, PART UNSP, W PERF AND ABSCESS W/O BLEED (2) Status post colon resection Current Visit: Yes Status: Acute Assessment & Plan: -Surgery following, note reviewed, agree with plan - admission for pain control -Advance diet per surgery when patient passes gas/sips and chips for now -Zosyn -Patient to hold ASA/Fish oil for a total of 7 days -Lovenox prophylactic -lactobacillus acidophilus 06/22: -No flatus -Continue pain control -encouraged ambulation 06/23: -PODS#3 -+flatus, CLD diet initiated, patient tolerating well -Pain controlled -MLI CDI Code(s): Z90.49 - ACQUIRED ABSENCE OF OTHER SPECIFIED PARTS OF DIGESTIVE TRACT (3) HTN (hypertension) Current Visit: Yes Status: Acute Assessment & Plan: -Monitor closely with pain medications -continue lisinopril Code(s): I10 - ESSENTIAL (PRIMARY) HYPERTENSION (4) Hypothyroid Current Visit: Yes Status: Acute Assessment & Plan: -continue synthyroid Code(s): E03.9 - HYPOTHYROIDISM, UNSPECIFIED (5) Anxiety Current Visit: Yes Status: Acute Assessment & Plan: -alprazolam prn Code(s): F41.9 - ANXIETY DISORDER, UNSPECIFIED (6) Hyponatremia Current Visit: Yes Status: Acute Assessment & Plan: -secondary to GI loss -continue IVF -continue to monitor 06/22: -Fluids changed to D5 with NS, will repeat sodium levels 06/23: -IVF now NS, sodium levels improving at 133, will continue to monitor Code(s): E87.1 - HYPO-OSMOLALITY AND HYPONATREMIA Code(s): K57.80 - DVTRCLI OF INTEST, PART UNSP, W PERF AND ABSCESS W/O BLEED Code(s): K57.80 - DVTRCLI OF INTEST, PART UNSP, W PERF AND ABSCESS W/O BLEED (2) Status post colon resection Current Visit: Yes Status: Acute Code(s): Z90.49 - ACQUIRED ABSENCE OF OTHER SPECIFIED PARTS OF DIGESTIVE TRACT (3) HTN (hypertension) Current Visit: Yes Status: Acute Code(s): I10 - ESSENTIAL (PRIMARY) HYPERT ENSION (4) Hypothyroid Current Visit: Yes Status: Acute Code(s): E03.9 - HYPOTHYROIDISM, UNSPECIFIED (5) Anxiety Current Visit: Yes Status: Acute Code(s): F41.9 - ANXIETY DISORDER, UNSPECIFIED (6) Hyponatremia Current Visit: Yes Status: Acute Code(s): E87.1 - HYPO-OSMOLALITY AND HYPONATREMIA
[2023-06-24] MEDS: PIPERACILLIN/TAZOBACTAM 3.375 GM in Dextrose 5%/Water IV Soln. 100ML PLUS BAG 100 ML IV SCH (17:12)
[2023-06-25 05:58] LABS: ALBUMIN 3.1 g/dL (3.5-5.0); ANION GAP 7.9 MEQ/L (5-15); BILIRUBIN,TOTAL 0.5 mg/dL (0.2-1.3); Calcium 8.8 mg/dL (8.4-10.2); Creatinine 1 0.82 mg/dL (0.52-1.04); EST GLOMERULAR FILTRATION RATE 72.3 ML/MIN; Potassium 3.7 mmol/L (3.5-5.1); Total Protein 5.6 g/dL (6.3-8.2)
[2023-06-25 08:22] LABS: Absolute Neutrophil Ct (ANC) 3.39 x10^3/uL (1.4-6.9); BASOPHIL % 0.7 % (0.0-0.4); Basophil (Absolute #) 0.04 x10^3/uL (0-0.4); Eosinophil % 4.1 % (0.00-5.0); Eosinophil (Absolute #) 0.23 x10^3/uL (0-0.5); Hematocrit 30.7 % (35-47); Hemoglobin 10.1 g/dL (12.0-16.0); IMMATURE GRAN # 0.01 x10^3u/L (0.00-0.03); IMMATURE GRAN % 0.2 % (0.00-0.4); Lymphocyte (Absolute #) 1.55 x10^3/uL (1.0-4.6); Lymphocytes % 27.9 % (24.0-44.0); Mean Cell Volume 90.3 fL (78-100); Mean Corpuscular Hemoglobin 29.7 pg (26-32); Mean Corpuscular Hgb Concent. 32.9 g/dL (32-36); Mean Platelet Volume 9.4 fL (7.5-11.0); Monocyte (Absolute #) 0.33 x10^3/uL (0.0-1.3); Monocytes % 5.9 % (0.0-12.0); Neutrophil % 61.2 % (36.0-66.0); Platelet Count 213 x10^3/uL (150-450); Red Cell Distribution Width 12.6 % (11.5-14.0); White Blood Count 5.6 x10^3/uL (4.0-10.5)
--- NOTE | 2023-06-25 12:50 | PCM.NOTE ---
Date and Time: 06/25/23 1239 Subjective Assessment: Ms. Mendez is an 82 year old female with a pmhx of GERD, IBS, HTN, HÉCTOR, TIA, h/o breast cancer, and hypothyroidism who is s/p exploratory mini-laparotomy with resection of sigmoid colon with perforated diverticulum segment with primary end-to-end anastomosis descending colon to rectum . Surgery has requested hospitalist team consult for medical management. Patient is POD#4 with minimal abdominal pain. She is now advanced to [facility] with + flatus and tolerating well. States she feels her energy is improving, feeling weak and anxious. MLI is CDI with Iodoform packing which will be advanced out over the next few days. EARLINE drain noted to the left abdomen with scant serosanguineous drainage. Denies fever,cough, sob, cp, GOMEZ, dizziness, N/V/D. Sodium levels are now normal. No BM yet. - Review of Systems Constitutional: No Symptoms Eyes: No Symptoms Ears, Nose, & Throat: No Symptoms Respiratory: Short Of Breath Cardiac: No Symptoms Abdominal/Gastrointestinal: Abdominal Pain Genitourinary Symptoms: No Symptoms Musculoskeletal: No Symptoms Skin: No Symptoms Neurological: No Symptoms Psychological: No Symptoms Endocrine: No Symptoms Hematologic/Lymphatic: No Symptoms Immunological/Allergic: No Symptoms Objective Exam General Appearance: no apparent distress Neurologic Exam: alert, oriented x 3, cooperative Skin Exam: normal color Wound Assessment: Skin/Wound Assessment Wound/Incision Assessment Start: 06/21/23 18:45 Text: Status: Active Freq: Q6H Protocol: Document 06/25/23 12:00 AW (Rec: 06/25/23 12:10 AW [id number]) Wound/Incision Assessment Medial Abdomen Wound Assessment Shift Assessment Wound Type Incision Wound Stage Non Pressure Wound Dressing Status Changed Drainage Amount Minimal Drainage Odor None/Absent General Appearance Well Approximated,[place] Intact,Draining Packing Type Gauze Packing Strips Primary Dressing Non-Adherent Gauze Pads Secondary Dressing large tegaderm over pad Comment POD #4 incision well approximated, no redness noted , advanced wick 1 cm, new dressing placed with 3x8 non- adherent Telfa pad & covered with large tegaderm. Medial Abdomen Drain Type EARLINE drain Drainage Description Sanguineous Odor None/Absent Comment Left abdomen EARLINE drain, sutures intact, no redness noted. Dressing changed with 4x4 drain sponge, 3x4 non-adherent Telfa pad, & covered with tegaderm. Wound Photo Photo Taken No Ears, Nose, Throat Exam: moist mucous membranes Neck Exam: normal inspection, full range of motion Respiratory Exam: normal breath sounds, lungs clear Cardiovascular Exam: regular rate/rhythm, normal heart sounds Gastrointestinal/Abdomen Exam: soft, normal bowel sounds, tenderness (MLI/EARLINE CDI with [place]) Extremity Exam: normal inspection Back Exam: normal inspection Pelvic Exam: deferred Rectal Exam: deferred Objective Data Vital Signs: Vital Signs - 24 hr Temp Pulse Resp BP Pulse Ox 06/25/23 12:00 19 06/25/23 11:44 98.1 F 77 19 177/77 97 06/25/23 08:00 18 06/25/23 07:25 97.3 F 83 24 173/76 95 06/25/23 04:07 96.8 F 75 18 141/59 93 L 06/25/23 04:00 20 06/25/23 00:00 18 06/24/23 23:27 98.0 F 81 26 H 164/68 94 L 06/24/23 20:00 97.9 F 84 28 H 163/75 95 06/24/23 16:00 16 06/24/23 15:21 97.1 F 87 20 151/64 95 Pain Assessment - Last Documented Pain Intensity 5 Pain Scale Used 0-10 Pain Scale Intake and Output: Intake & Output 06/23/23 06/24/23 06/25/23 06/26/23 11:59 11:59 11:59 11:59 Intake Total 4551 4372 Output Total 862 2158 2225 Balance 3689 -2158 2147 Weight 55.7 kg Lab Results: Lab Results-Last 24 Hours 06/24/23 06/25/23 06/25/23 Range/Units 13:48 04:00 05:20 WBC 5.6 (4.0-10.5) x10^3/uL RBC 3.40 L (4.1-5.4) x10^6/uL Hgb 10.1 L (12.0-16.0) g/dL Hct 30.7 L (35-47) % MCV 90.3 (78-100) fL MCH 29.7 (26-32) pg MCHC 32.9 (32-36) g/dL RDW 12.6 (11.5-14.0) % Plt Count 213 D (150-450) x10^3/uL MPV 9.4 (7.5-11.0) fL Gran % 61.2 (36.0-66.0) % Immature Gran % (Auto) 0.2 (0.00-0.4) % Nucleat RBC Rel Count 0.0 (0.00-0.1) % Eos # (Auto) 0.23 (0-0.5) x10^3/uL Immature Gran # (Auto) 0.01 (0.00-0.03) x10^3u/L Absolute Lymphs (auto) 1.55 (1.0-4.6) x10^3/uL Absolute Monos (auto) 0.33 (0.0-1.3) x10^3/uL Absolute Nucleated RBC 0.00 (0.00-0.01) x10^3u/L Lymphocytes % 27.9 (24.0-44.0) % Monocytes % 5.9 (0.0-12.0) % Eosinophils % 4.1 (0.00-5.0) % Basophils % 0.7 (0.0-0.4) % Absolute Granulocytes 3.39 (1.4-6.9) x10^3/uL Basophils # 0.04 (0-0.4) x10^3/uL Sodium 133 L 135 (135-145) mmol/L Potassium 3.7 (3.5-5.1) mmol/L Chloride 105 (98-107) mmol/L Carbon Dioxide 26 (22-30) mmol/L Anion Gap 7.9 (5-15) MEQ/L BUN 6 L (7-17) mg/dL Creatinine 0.82 (0.52-1.04) mg/dL Estimated GFR 72.3 ML/MIN Glucose 88 (74-106) mg/dL Calcium 8.8 (8.4-10.2) mg/dL Total Bilirubin 0.50 (0.2-1.3) mg/dL AST 41 H (14-36) U/L ALT 22 (0-35) U/L Alkaline Phosphatase 65 (38-126) U/L Serum Total Protein 5.6 L (6.3-8.2) g/dL Albumin 3.1 L (3.5-5.0) g/dL Multi-Disciplinary Progress Notes: Multi-Disciplinary Progress Notes 06/25/23 11:21 Case Management Note by Sona Mo S/W PATIENT- SHE CONTINUES TO DENY ANY NEW NEEDS AT TIME OF DC. SHE PLANS TO DC HOME TO HER PLF. SHE REPORTS HER SON IF OFF FOR THE NEXT 4 DAYS AND WILL CHECK ON HER FREQUENTLY AND ASSIST NEEDED. SHE PLANS FOR HER DAUGHTER IN LAW TO HE LP WITH DRESSING CHANGES ORDERED AT MS. SHE DECLINES A REHAB STAY AND DECLINES HHC AT THIS TIME. PATIENT WILL NEED SPECIFIC ORDERS FOR DRESSING CHANGES AT [facility] AND THESE WILL NEED TO BE DISCUSSED WITH DAUGHTER IN LAW SHE WILL BE THE ONE DOING THE DRESSING CHANGES Initialized on 06/25/23 11:21 - END OF NOTE 06/24/23 15:27 Physical Therapy Note by Penny(L#[id number])Monika PT. WAS SEEN BY OP P.T. THIS A.M. REPORTS OVERALL FEELING BETTER; STATES SHE SLEPT WELL LAST NIGHT. DOES C/O R NECK AND SHOULDER PN; HAS HX R RTC TEAR. PT. IN BEDSIDE RECLINER UPON P.T. ARRIVAL TO ROOM. IV AND TELEMETRY PRESENT. PT. AGREEABLE TO WORK W P.T. PERFORMED SEATED LE EX'S OF LAQS, MARCHES, ANKLE PUMPS, HEEL SLIDES, ABD SLIDES, QUAD SETS AND GLUT SETS X 10 REPS. PT. AMBULATED 150' WITHOUT A.D. TODAY W/ CGA-SBA. PT'S OVERALL GAIT MORE STEADY; NOTED SLOW PACE AND DECREASED FOOT CLEARANCE W/ GAIT. O2 SATS 92-93% ON RA DURING WALK. FREQUENT V.C. GIVEN TO BREATHE PROPERLY DURING RX. TO CONT. W/ P.T. 5X/WK TO ADDRESS WEAKNESS AND DECREASED ACTIVITY TOLERANCE. PT. IS HOPEFUL TO D/C HOME WHEN ABLE. HAS DENIED NEED FOR HHC. Initialized on 06/24/23 15:27 - END OF NOTE Assessment/Plan (1) Perforated diverticulum Current Visit: Yes Status: Acute Assessment & Plan: -Surgery following, patient is s/p exploratory mini-laparotomy with resection of sigmoid colon with perforated diverticulum segment with primary end-to-end anastomosis descending colon to rectum Code(s): K57.80 - DVTRCLI OF INTEST, PART UNSP, W PERF AND ABSCESS W/O BLEED (2) Status post colon resection Current Visit: Yes Status: Acute Assessment & Plan: -Surgery following, note reviewed, agree with plan - admission for pain control -Advance diet per surgery when patient passes gas/sips and chips for now -Zosyn -Patient to hold ASA/Fish oil for a total of 7 days -Lovenox prophylactic -lactobacillus acidophilus 06/22: -No flatus -Continue pain control -encouraged ambulation 06/23: -PODS#3 -+flatus, CLD diet initiated, patient tolerating well -Pain controlled -MLI CDI 06/24: -+flatus -BM -Remains on CLD -Pain controlled, ambulating well Code(s): Z90.49 - ACQUIRED ABSENCE OF OTHER SPECIFIED PARTS OF DIGESTIVE TRACT (3) HTN (hypertension) Current Visit: Yes Status: Acute Assessment & Plan: -Monitor closely with pain medications -continue lisinopril Code(s): I10 - ESSENTIAL (PRIMARY) HYPERTENSION (4) Hypothyroid Current Visit: Yes Status: Acute Assessment & Plan: -continue synthyroid Code(s): E03.9 - HYPOTHYROIDISM, UNSPECIFIED (5) Anxiety Current Visit: Yes Status: Acute Assessment & Plan: -alprazolam prn Code(s): F41.9 - ANXIETY DISORDER, UNSPECIFIED (6) Hyponatremia Current Visit: Yes Status: Acute Assessment & Plan: -secondary to GI loss -continue IVF -continue to monitor 06/22: -Fluids changed to D5 with NS, will repeat sodium levels 06/23: -IVF now NS, sodium levels improving at 133, will continue to monitor 06/24: -Resolved Code(s): K57.80 - DVTRCLI OF INTEST, PART UNSP, W PERF AND ABSCESS W/O BLEED (2) Status post colon resection Current Visit: Yes Status: Acute Code(s): Z90.49 - ACQUIRED ABSENCE OF OTHER SPECIFIED PARTS OF DIGESTIVE TRACT (3) HTN (hypertension) Current Visit: Yes Status: Acute Code(s): I10 - ESSENTIAL (PRIMARY) HYPERTENSION (4) Hypothyroid Current Visit: Yes Status: Acute Code(s): E03.9 - HYPOTHYROIDISM, UNSPECIFIED (5) Anxiety Current Visit: Yes Status: Acute Code(s): F41.9 - ANXIETY DISORDER, UNSPECIFIED (6) Hyponatremia Current Visit: Yes Status: Acute Code(s): E87.1 - HYPO-OSMOLALITY AND HYPONATREMIA
[2023-06-25 23:29] VITALS: O2SAT 96
[2023-06-26 06:03] LABS: Absolute Neutrophil Ct (ANC) 2.94 x10^3/uL (1.4-6.9); BASOPHIL % 0.5 % (0.0-0.4); Basophil (Absolute #) 0.03 x10^3/uL (0-0.4); Eosinophil % 5.5 % (0.00-5.0); Eosinophil (Absolute #) 0.31 x10^3/uL (0-0.5); Hemoglobin 9.2 g/dL (12.0-16.0); IMMATURE GRAN # 0.02 x10^3u/L (0.00-0.03); IMMATURE GRAN % 0.4 % (0.00-0.4); Lymphocyte (Absolute #) 1.87 x10^3/uL (1.0-4.6); Mean Cell Volume 87.4 fL (78-100); Mean Corpuscular Hemoglobin 29.8 pg (26-32); Mean Corpuscular Hgb Concent. 34.1 g/dL (32-36); Mean Platelet Volume 8.4 fL (7.5-11.0); Monocyte (Absolute #) 0.49 x10^3/uL (0.0-1.3); Monocytes % 8.7 % (0.0-12.0); Neutrophil % 51.9 % (36.0-66.0); Platelet Count 207 x10^3/uL (150-450); Red Blood Count 3.09 x10^6/uL (4.1-5.4); Red Cell Distribution Width 12.4 % (11.5-14.0); White Blood Count 5.7 x10^3/uL (4.0-10.5)
[2023-06-26 06:39] LABS: ALBUMIN 2.9 g/dL (3.5-5.0); ANION GAP 5.2 MEQ/L (5-15); BILIRUBIN,TOTAL 0.6 mg/dL (0.2-1.3); Creatinine 1 0.77 mg/dL (0.52-1.04); EST GLOMERULAR FILTRATION RATE 77.9 ML/MIN; Potassium 3.3 mmol/L (3.5-5.1); Total Protein 5.2 g/dL (6.3-8.2)
[2023-06-26] MEDS: Klor Con PO ONE ×2 (08:57→12:04)
[2023-06-26 09:47] VITALS: PULSE 74
--- NOTE | 2023-06-26 11:10 | PCM.DS ---
Discharge Summary Date of Admission: 06/21/23 17:22 Date of Discharge: 06/26/23 Admitting Physician: JOSAFAT BEAN Primary Care Provider: KATIE ZHONG Allergies Allergies Sulfa (Sulfonamide Antibiotics) Allergy (Intermediate, Verified 06/21/23 10:26) Rash meperidine [From Demerol] Adverse Reaction (Intermediate, Verified 06/21/23 10:26) Nausea Hospital Summary - Hospital Course Hospital Course: Ms. Mendez is an 82 year old female with a pmhx of GERD, IBS, HTN, HÉCTOR, TIA, h/o breast cancer, and hypothyroidism who is s/p exploratory mini-laparotomy with resection of sigmoid colon with perforated diverticulum segment with primary end-to-end anastomosis descending colon to rectum . Surgery has requested hospitalist team consult for medical management. Patient is POD#4 with minimal abdominal pain. She is now advanced to CLD with + flatus and tolerating well. States she feels her energy is improving, feeling weak and anxious. MLI is CDI with Iodoform packing which will be advanced out over the next few days. EARLINE drain noted to the left abdomen with scant serosanguineous drainage. Denies fever,cough, sob, cp, GOMEZ, dizziness, N/V/D. Sodium levels are now normal. +BM with flatus, tolerating FLD. Surgery has cleared patient for discharge. Per surgery -Wear abdominal binder, Patient is to maintain soft diet for 5 days, then can resume regular diet, EARLINE drain/veena discontinued prior to discharge, and follow up with surgery in one week. Discharge Note Latest Assessment & Plan (1) Perforated diverticulum Current Visit: Yes Status: Acute Assessment & Plan: -Surgery following, patient is s/p exploratory mini-laparotomy with resection of sigmoid colon with perforated diverticulum segment with primary end-to-end anastomosis descending colon to rectum Code(s): K57.80 - DVTRCLI OF INTEST, PART UNSP, W PERF AND ABSCESS W/O BLEED (2) Status post colon resection Current Visit: Yes Status: Acute Assessment & Plan: -Surgery following, note reviewed, agree with plan - admission for pain control -Advance diet per surgery when patient passes gas/sips and chips for now -Zosyn -Patient to hold ASA/Fish oil for a total of 7 days -Lovenox prophylactic -lactobacillus acidophilus 06/22: -No flatus -Continue pain control -encouraged ambulation 06/23: -PODS#3 -+flatus, CLD diet initiated, patient tolerating well -Pain controlled -MLI CDI 06/24: -+flatus -BM -Remains on CLD -Pain controlled, ambulating well Code(s): Z90.49 - ACQUIRED ABSENCE OF OTHER SPECIFIED PARTS OF DIGESTIVE TRACT (3) HTN (hypertension) Current Visit: Yes Status: Acute Assessment & Plan: -Monitor closely with pain medications -continue lisinopril Code(s): I10 - ESSENTIAL (PRIMARY) HYPERTENSION (4) Hypothyroid Current Visit: Yes Status: Acute Assessment & Plan: -continue synthyroid Code(s): E03.9 - HYPOTHYROIDISM, UNSPECIFIED (5) Anxiety Current Visit: Yes Status: Acute Assessment & Plan: -alprazolam prn Code(s): F41.9 - ANXIETY DISORDER, UNSPECIFIED (6) Hyponatremia Current Visit: Yes Status: Acute Assessment & Plan: -secondary to GI loss -continue IVF -continue to monitor 06/22: -Fluids changed to D5 with NS, will repeat sodium levels 06/23: -IVF now NS, sodium levels improving at 133, will continue to monitor 06/24: -Resolved Code(s): K57.80 - DVTRCLI OF INTEST, PART UNSP, W PERF AND ABSCESS W/O BLEED I spent 35 minutes [id number] with the patient on the day of discharge performing discharge exam, discussing hospital stay and discharge instructions with patient and caregivers, preparation of discharge records, prescriptions & referral forms and addressing any questions/concerns the patient had as documented above. - Vitals & Intake/Output Vital Signs: Vital Signs Temperature 98.1 F 06/26/23 08:00 Pulse Rate 74 06/26/23 08:00 Respiratory Rate 19 06/26/23 08:00 Blood Pressure 127/70 06/26/23 08:00 O2 Sat by Pulse Oximetry 96 06/26/23 08:00 Intake & Output: Intake & Output 06/23/23 06/24/23 06/25/23 06/26/23 11:59 11:59 11:59 11:59 Intake Total 4551 4372 2023 Output Total 862 2158 2225 2230 Balance 3689 -2158 7 -207 Weight 55.7 kg 55.7 kg - Lab Result Diagrams: 06/26/23 05:58 06/26/23 10:00 Lab Results-Last 24 Hrs: Lab Results-Last 24 Hours 06/21/23 06/26/23 06/26/23 Range/Units 13:25 05:58 05:58 WBC 5.7 (4.0-10.5) x10^3/uL RBC 3.09 L (4.1-5.4) x10^6/uL Hgb 9.2 L (12.0-16.0) g/dL Hct 27.0 L (35-47) % MCV 87.4 (78-100) fL MCH 29.8 (26-32) pg MCHC 34.1 (32-36) g/dL RDW 12.4 (11.5-14.0) % Plt Count 207 (150-450) x10^3/uL MPV 8.4 (7.5-11.0) fL Gran % 51.9 (36.0-66.0) % Immature Gran % (Auto) 0.4 (0.00-0.4) % Nucleat RBC Rel Count 0.0 (0.00-0.1) % Eos # (Auto) 0.31 (0-0.5) x10^3/uL Immature Gran # (Auto) 0.02 (0.00-0.03) x10^3u/L Absolute Lymphs (auto) 1.87 (1.0-4.6) x10^3/uL Absolute Monos (auto) 0.49 (0.0-1.3) x10^3/uL Absolute Nucleated RBC 0.00 (0.00-0.01) x10^3u/L Lymphocytes % 33.0 (24.0-44.0) % Monocytes % 8.7 (0.0-12.0) % Eosinophils % 5.5 H (0.00-5.0) % Basophils % 0.5 (0.0-0.4) % Absolute Granulocytes 2.94 (1.4-6.9) x10^3/uL Basophils # 0.03 (0-0.4) x10^3/uL Sodium 133 L (135-145) mmol/L Potassium 3.3 L (3.5-5.1) mmol/L Chloride 102 (98-107) mmol/L Carbon Dioxide 28 (22-30) mmol/L Anion Gap 5.2 (5-15) MEQ/L BUN 4 L (7-17) mg/dL Creatinine 0.77 (0.52-1.04) mg/dL Estimated GFR 77.9 ML/MIN Glucose 97 (74-106) mg/dL Calcium 9.0 (8.4-10.2) mg/dL Total Bilirubin 0.60 (0.2-1.3) mg/dL AST 37 H (14-36) U/L ALT 22 (0-35) U/L Alkaline Phosphatase 62 (38-126) U/L Serum Total Protein 5.2 L (6.3-8.2) g/dL Albumin 2.9 L (3.5-5.0) g/dL Surg PTH Specimen SEE COMMENTS 06/26/23 Range/Units 10:00 WBC (4.0-10.5) x10^3/uL RBC (4.1-5.4) x10^6/uL Hgb (12.0-16.0) g/dL Hct (35-47) % MCV (78-100) fL MCH (26-32) pg MCHC (32-36) g/dL RDW (11.5-14.0) % Plt Count (150-450) x10^3/uL MPV (7.5-11.0) fL Gran % (36.0-66.0) % Immature Gran % (Auto) (0.00-0.4) % Nucleat RBC Rel Count (0.00-0.1) % Eos # (Auto) (0-0.5) x10^3/uL Immature Gran # (Auto) (0.00-0.03) x10^3u/L Absolute Lymphs (auto) (1.0-4.6) x10^3/uL Absolute Monos (auto) (0.0-1.3) x10^3/uL Absolute Nucleated RBC (0.00-0.01) x10^3u/L Lymphocytes % (24.0-44.0) % Monocytes % (0.0-12.0) % Eosinophils % (0.00-5.0) % Basophils % (0.0-0.4) % Absolute Granulocytes (1.4-6.9) x10^3/uL Basophils # (0-0.4) x10^3/uL Sodium (135-145) mmol/L Potassium 3.4 L (3.5-5.1) mmol/L Chloride (98-107) mmol/L Carbon Dioxide (22-30) mmol/L Anion Gap (5-15) MEQ/L BUN (7-17) mg/dL Creatinine (0.52-1.04) mg/dL Estimated GFR ML/MIN Glucose (74-106) mg/dL Calcium (8.4-10.2) mg/dL Total Bilirubin (0.2-1.3) mg/dL AST (14-36) U/L ALT (0-35) U/L Alkaline Phosphatase (38-126) U/L Serum Total Protein (6.3-8.2) g/dL Albumin (3.5-5.0) g/dL Surg PTH Specimen Micro Results-Entire Visit: Microbiology 06/21/23 13:25 Urine Culture - Final Urine, Catheterized NO GROWTH - Procedures and Test Procedures and Tests throughout Hospitalization: Therapy Orders & Screens 06/21/23 10:38 EKG STAT Comment: 06/21/23 12:52 EKG ONCE Comment: Diagnosis: CHANGE IN BOWEL HABITS, HEMORRHOID 06/21/23 18:45 OT Screen per Nursing Assess ONCE Comment: Protocol Order Physician Instructions: Greater than 3 points order OT Admission Screening Reason For Exam: Triggered on Admission Diagnosis: colectomy Open Wound/Cellutlitis/Pressure Ulcers: Yes Acute Fx/ORIF/Change in wt bearing status: No Severe MUSCULOSKELETAL pain: Yes ADL Dysfunction: No Acute CVA w/Hemiparesis/Hemiplegia: No Decreased Functional Mobility/Strength: No Sprain/Strain: No Acute Post-op Mobility Dysfunction: No Total Points: 10 PT Screen per Nursing Assess ONCE Comment: Protocol Order Physician Instructions: Greater than 3 points order PT Admission Screenin Reason For Exam: Triggered on Admission Diagnosis: colectomy Open Wound/Cellutlitis/Pressure Ulcers: Yes Acute Fx/ORIF/Change in wt bearing status: No Severe MUSCULOSKELETAL pain: Yes ADL Dysfunction: No Acute CVA w/Hemiparesis/Hemiplegia: No Decreased Functional Mobility/Strength: No Sprain/Strain: No Acute Post-op Mobility Dysfunction: No Total Points: 10 04/16/24 14:16 Incentive Spirometry TID Comment: Diagnosis: PERFORATED DIVERTICULI - COLECTOMY 06/23/23 07:47 PT Eval & Treat (MD Order) ONCE Reason for Eval:: weakness Diagnosis: PERFORATED DIVERTICULI - COLECTOMY 06/24/23 10:19 FLUTTER [Flutter Therapy] UD Comment: Diagnosis: PERFORATED DIVERTICULI - COLECTOMY Discharge Exam General Appearance: no apparent distress Neurologic Exam: alert Eye Exam: PERRL Ears, Nose, Throat Exam: moist mucous membranes Neck Exam: full range of motion Respiratory Exam: normal breath sounds, lungs clear Cardiovascular Exam: regular rate/rhythm, normal heart sounds Gastrointestinal/Abdomen Exam: soft, normal bowel sounds Pelvic Exam: deferred Rectal Exam: deferred Back Exam: normal inspection Extremity Exam: normal inspection Skin Exam: other (see wound assessment for MLI) Wound Assessment: Skin/Wound Assessment Wound/Incision Assessment Start: 06/21/23 18:45 Text: Status: Active Freq: Q6H Protocol: Document 06/26/23 05:38 AR (Rec: 06/26/23 05:38 AR [id number]) Wound/Incision Assessment Medial Abdomen Wound Assessment Shift Assessment Wound Type Incision Wound Stage Non Pressure Wound Dressing Status Dry & Intact Drainage Amount Minimal Drainage Odor None/Absent General Appearance Well Approximated,[place] Intact,Draining Packing Type Gauze Packing Strips Primary Dressing Non-Adherent Gauze Pads Secondary Dressing large tegaderm over pad Comment POD #4 incision: dressing is intact with a small amount of drainage. Medial Abdomen Drain Type EARLINE drain Drainage Description Sanguineous Odor None/Absent Comment Left abdomen EARLINE drain, dressing dry and intact Wound Photo Photo Taken No Final Diagnosis/Problem List - Final Discharge Diagnosis/Problem (1) Perforated diverticulum Current Visit: Yes Status: Acute Code(s): K57.80 - DVTRCLI OF INTEST, PART UNSP, W PERF AND ABSCESS W/O BLEED (2) Status post colon resection Current Visit: Yes Status: Acute Code(s): Z90.49 - ACQUIRED ABSENCE OF OTHER SPECIFIED PARTS OF DIGESTIVE TRACT (3) HTN (hypertension) Current Visit: Yes Status: Acute Code(s): I10 - ESSENTIAL (PRIMARY) HYPERTENSION (4) Hypothyroid Current Visit: Yes Status: Acute Code(s): E03.9 - HYPOTHYROIDISM, UNSPECIFIED (5) Anxiety Current Visit: Yes Status: Acute Code(s): F41.9 - ANXIETY DISORDER, UNSPECIFIED (6) Hyponatremia Current Visit: Yes Status: Acute Code(s): E87.1 - HYPO-OSMOLALITY AND HYPONATREMIA - Discharge Disposition: Home, Self-Care Condition: Stable Prescriptions: New Hydrocodone/Acetaminophen [Hydrocodone-Acetamin 5-325 mg] 1 tab PO Q4HPRN PRN #18 tablet MDD 6 PRN Reason: Pain Continue Cyanocobalamin (Vitamin B-12) [Vitamin B12] 1,000 mcg PO DAILY Multivitamin [Multivitamins] 1 each PO DAILY Lisinopril 20 mg [Zestril 20 MG] 10 mg PO DAILY ALPRAZolam 1 MG [Xanax 1 mg] 1 mg PO TID Cholecalciferol (Vitamin D3) [Vitamin D3] 1,000 unit PO DAILY Levothyroxine Sodium [Euthyrox] 50 mcg PO DAILY L.acidoph,Paracasei, B.lactis [Probiotic] 1 cap PO DAILY Discontinued [place]-3 Fatty Acids/Fish Oil [Fish Oil 1,000 mg Capsule] 1 each PO DAILY Aspirin EC 81 mg [Ecotrin 81 mg] 81 mg PO DAILY Additional Instructions: Hold aspirin and fish oil for a total of 7 days from surgery date per surgery orders Follow up with: KATIE ZHONG MD [Primary Care Provider] - 07/01/23 3:30 pm SOHAN BEAN [COURTESY STAFF] - 07/05/23 8:10 am (AT [facility])
[2023-06-26 13:37] VITALS: BP 151/77; TEMP 98
[2023-06-26 17:21] VITALS: RESP 17
[2023-06-26] MEDS ORDERED: PIPERACILLIN/TAZOBACTAM 3.375 GM in Sodium Chloride 100ML MINI-BAG PLUS 100 ML IV SCH (18:00)
[2023-06-28] MEDS ORDERED: FISH OIL 1,000 MG CAPSULE PO SCH (10:00)
== END 2023-06-26 14:57 | disposition home or self-care (01) | DRG 330 ==
LOC: SDC 10:32 → ICU 17:22
PROVIDERS: ADMIT Surgery; ATTEND Surgery
PROC: 0DDN8ZX Extraction of Sigmoid Colon, Via Natural or Artificial Opening Endoscopic, Diagnostic (ICD-10-PCS; principal; 2023-06-21)
PROC: 0DTN0ZZ Resection of Sigmoid Colon, Open Approach (ICD-10-PCS; 2023-06-21)
DX: K57.80 Diverticulitis of intestine, part unspecified, with perforation and abscess without bleeding (principal); E87.1 Hypo-osmolality and hyponatremia; I10 Essential (primary) hypertension; E03.9 Hypothyroidism, unspecified; F41.9 Anxiety disorder, unspecified; Z90.49 Acquired absence of other specified parts of digestive tract; Z85.3 Personal history of malignant neoplasm of breast; K58.9 Irritable bowel syndrome, unspecified; K64.8 Other hemorrhoids; R19.4 Change in bowel habit; K64.4 Residual hemorrhoidal skin tags; K57.90 Diverticulosis of intestine, part unspecified, without perforation or abscess without bleeding; Z79.899 Other long term (current) drug therapy; Z20.828 Contact with and (suspected) exposure to other viral communicable diseases
CPT/HCPCS: 00811; 00840; 36415; 44140; 45380; 64488; 76937; 76942; 80048; 80053; 81001; 84132; 84134; 84295; 84484; 85025; 85027; 87086; 88305; 93005; 94667; 97110; 97161; 97530; 99100; 99140; Q3014; J0330; J0694; J1100; J1650; J2270; J2405; J2704; J3010; L0625; A9270-GY

== ENCOUNTER 2024-03-06 08:26 | Day surgery (SDC) | payer MEDICARE ==
[2024-03-06] MEDS ORDERED: Lactated Ringers 1,000 ML IV SCH (08:30)
[2024-03-06 08:52] VITALS: RESP 18
--- NOTE | 2024-03-06 09:03 | HP ---
HISTORY OF PRESENT ILLNESS: An 83-year-old, no bloody stool, who has had resection for diverticular disease several months ago, is in need for completion colonoscopy. Family history of grandmother with colon cancer. PAST MEDICAL HISTORY: History of some cataracts, hard of hearing, has some dentures, hypertension, diverticular disease, depression as well as anxiety. HOME MEDICATIONS: Xanax, lisinopril, lamotrigine, aspirin, cyanocobalamin. ALLERGIES: Demerol and sulfa. PAST SURGICAL HISTORY: D and C in the past, tonsillectomy in the past, eardrum rupture in the past, she had colon resection for perforated diverticular disease, had lumpectomy of the right breast in the past, and had endoscopy in the past. SOCIAL HISTORY: No smoking or alcohol abuse. FAMILY HISTORY: Negative except grandmother with colon cancer. REVIEW OF SYSTEMS: Twelve systems reported. She has had right breast cancer in the past and had lumpectomy. Toe surgery and foot surgery in the past. Other systems negative or noncontributory as above and per preadmission questionnaire. PHYSICAL EXAMINATION: GENERAL: Height 5 feet 4 inches. BMI 21.46. No acute distress. HEENT: Extraocular movements intact. NECK: No JVD. CHEST: Clear. Equal excursion, nonlabored breathing. CARDIOVASCULAR: Regular rate and rhythm. ABDOMEN: Soft. SKIN: Dry. EXTREMITIES: No cyanosis or edema. NEUROLOGIC: Alert and oriented. Moving extremities symmetrically. PSYCHIATRIC: Appropriate mood and affect. RECTAL: Deferred until time of endoscopy exam. IMPRESSION: History of resection for diverticular disease, in need of completion colonoscopy. Risks explained, not limited to, bleeding, infection, risk of bowel injury possibly requiring open procedure; risk of incomplete exam possibly requiring barium swallow; risks of missed or nondiagnosis with possibly requiring further procedure or referrals; risks of sedation and anesthesia; risk of bowel prep but not limited to. We will proceed with outpatient colonoscopy under MAC anesthesia. Otherwise, continue medication for anxiety, hypertension, and thyroid disease.
[2024-03-06 09:13] LABS: ANION GAP 13.4 MEQ/L (5-15); Calcium 9.5 mg/dL (8.4-10.2); Creatinine 1 0.73 mg/dL (0.52-1.04); EST GLOMERULAR FILTRATION RATE 82.6 ML/MIN; Potassium 4.2 mmol/L (3.5-5.1)
[2024-03-06] MEDS: Lactated Ringers 1,000 ML IV SCH (09:26)
[2024-03-06] MEDS ORDERED: Zofran 4 MG/2 ML VIAL ONE (09:26)
[2024-03-06] MEDS: Zofran 4 MG/2 ML VIAL IV STA (09:26)
[2024-03-06] MEDS ORDERED: propofoL IV ONE (10:55)
[2024-03-06 11:36] VITALS: BP 127/53; PULSE 72; TEMP 98.2; O2SAT 99
--- NOTE | 2024-03-07 12:21 | OP ---
SURGERY DATE/TIME: 03/06/2024 [id number] PREOPERATIVE DIAGNOSES: 1) Family history of some colon cancer in the past. 2) History of colon resection for diverticular perforation in the past. 3) Need for followup screening colonoscopy. POSTOPERATIVE DIAGNOSES: 1) Pancolonic diverticulosis. 2) Polyps, descending colon and rectum. 3) Prior colorectal anastomotic site fine. 4) ASA class 3. 5) Prep overall was good. 6) Withdrawal time was approximately 8 minutes. PROCEDURES: 1) Colonoscopy to the cecum. 2) Hot biopsy polypectomy of small descending colon polyp. 3) Hot biopsy polypectomy of small distal rectal polyp. SURGEON: Brad Smyth MD ANESTHESIA: MAC. ESTIMATED BLOOD LOSS: Minimal. INDICATIONS: Consent was obtained. DESCRIPTION OF PROCEDURE AND FINDINGS: The patient was taken to the operating room. MAC anesthesia was induced. After official time-out and no disagreement with planned procedure, she did have some small internal and external hemorrhoids. Videocolonoscope was inserted and passed up through the slightly tortuous left colon. Her anastomotic site from her previous resection was fine, but she did have some diverticulosis in the left colon, transverse colon and ascending colon. The scope was passed around to the cecum. Appendiceal orifice area and ileocecal valve photo documented. Prep overall was good. Had a little bit of liquidy stool, was suction irrigated as clear as possible. Had a little bit of foam in the right colon. The scope was carefully withdrawn over the next 8 minutes. No signs of any large polyps, masses, or obstructing lesions. There were small polyps in the descending colon and rectum removed with hot biopsy polypectomy. Again, the colorectal anastomotic site was fine. No signs of any issues at this time. She had some small internal and external hemorrhoids. They did not seem to be severe enough to warrant any intervention at the moment. Patient tolerated the procedure well. The biopsy site at the rectum had a small few drops of blood. She is getting a Dede-Pad. Findings were discussed with the family out in the waiting area. She is to avoid her aspirin or fish oil for a week, and I will see her back in the office next week.
== END 2024-03-06 11:50 | disposition home or self-care (01) ==
LOC: SDC 08:26
PROVIDERS: ATTEND Surgery
DX: Z12.11 Encounter for screening for malignant neoplasm of colon (principal); Z80.0 Family history of malignant neoplasm of digestive organs; I10 Essential (primary) hypertension; Z90.49 Acquired absence of other specified parts of digestive tract; K57.30 Diverticulosis of large intestine without perforation or abscess without bleeding; K62.1 Rectal polyp; K64.4 Residual hemorrhoidal skin tags; K64.8 Other hemorrhoids; D12.4 Benign neoplasm of descending colon
CPT/HCPCS: 36415; 80048; 93005; 99100; J2405; J2704